=== PATIENT | male | born 1965 | race Caucasian/White ===

== ENCOUNTER 2022-02-27 02:11 | Emergency (ER) | payer MEDICARE ==
[2022-02-27 03:05] LABS: #Eosinphils 0.3 thou/uL (0.0-0.7); #Lymphocytes 1.2 thou/uL (1.20-3.40); #Monocytes 0.7 thou/uL (0.11-0.59); %Basophils 0.3 % (0.0-1.0); %Eosinophils 3.8 % (0.0-10.0); %Lymphocytes 12.8 % (21.0-51.0); %Monocytes 7.7 % (0.0-10.0); %Neutrophils 75.5 % (42.0-75.0); Hemoglobin 11.9 g/dL (14.0-18.0); Mean Corpuscular HGB CONC 34.3 g/dL (32.0-36.0); Mean Corpuscular Hemoglobin 30.4 pg (27.0-31.0); Mean Corpuscular Volume 88.6 fL (78.0-98.0); Mean Platelet Volume 7.9 fL (7.4-10.4); Platelet Count 271 thou/uL (130-400); RBC Distribution Width 11.9 % (11.5-14.5); Red Blood Cell (RBC) Count 3.91 mill/uL (4.70-6.10); White Blood Cell (WBC) Count 9.2 thou/uL (4.8-10.8)
[2022-02-27 03:22] LABS: ALT (SGPT) 17 U/L (8-55); AST (SGOT) 18 U/L (5-34); Albumin 3.6 g/dL (3.5-5.0); Alkaline Phosphatase 62 U/L (40-110); Anion Gap 13 mmol/L (10-20); BUN (Urea Nitrogen) 17 mg/dL (8.4-25.7); Bilirubin, Total 0.3 mg/dL (0.2-1.2); CK (CPK) 106 U/L (30-200); Calc. Creatinine Clearance 0 mL/min (70-130); Calcium 8.8 mg/dL (7.8-10.44); Carbon Dioxide 26 mmol/L (22-29); Chloride 104 mmol/L (98-107); Estimated GFR 77; Globulin 3.5 g/dL (2.4-3.5); Glucose 72 mg/dL (70-105); Lipase 16 U/L (8-78); Potassium 3.7 mmol/L (3.5-5.1); Protein, Total 7.1 g/dL (6.0-8.3); Sodium 139 mmol/L (136-145)
[2022-02-27] MEDS ORDERED: Ketorolac Tromethamine 30 MG/ML VIAL ONE (03:50)
[2022-02-27] MEDS ORDERED: Dexamethasone 10 MG/ML VIAL ONE (03:50)
[2022-02-27] MEDS ORDERED: Iopamidol-370 76% 500 ML 1 ML ONE (08:55)
== END 2022-02-27 05:10 | disposition home or self-care (01) ==
LOC: ERS 02:11
DX: U07.1 COVID-19 (principal); J32.9 Chronic sinusitis, unspecified; E10.9 Type 1 diabetes mellitus without complications; E78.5 Hyperlipidemia, unspecified; Z86.73 Personal history of transient ischemic attack (TIA), and cerebral infarction without residual deficits
CPT/HCPCS: 70450; 70491; 80053; 82550; 83690; 85025; 96374; 96375; J1100; J1885; Q9967

== ENCOUNTER 2022-03-09 00:29 | Inpatient (IN) | payer MEDICARE, OTHER ==
[2022-03-09 00:56] LABS: #Eosinphils 0.5 thou/uL (0.0-0.7); #Lymphocytes 2.2 thou/uL (1.20-3.40); #Neutrophils 9.3 thou/uL (1.40-6.50); %Basophils 0.2 % (0.0-1.0); %Eosinophils 3.7 % (0.0-10.0); %Lymphocytes 16.9 % (21.0-51.0); %Monocytes 7.8 % (0.0-10.0); %Neutrophils 71.4 % (42.0-75.0); Hemoglobin 12.8 g/dL (14.0-18.0); Mean Corpuscular HGB CONC 33.7 g/dL (32.0-36.0); Mean Corpuscular Hemoglobin 30.2 pg (27.0-31.0); Mean Corpuscular Volume 89.6 fL (78.0-98.0); Mean Platelet Volume 7.8 fL (7.4-10.4); Platelet Count 382 thou/uL (130-400); Red Blood Cell (RBC) Count 4.24 mill/uL (4.70-6.10)
[2022-03-09 01:11] LABS: ALT (SGPT) 30 U/L (8-55); AST (SGOT) 25 U/L (5-34); Albumin 3.9 g/dL (3.5-5.0); Alkaline Phosphatase 72 U/L (40-110); Anion Gap 14 mmol/L (10-20); BUN (Urea Nitrogen) 20 mg/dL (8.4-25.7); Bilirubin, Total 0.7 mg/dL (0.2-1.2); Calc. Creatinine Clearance 0 mL/min (70-130); Calcium 8.9 mg/dL (7.8-10.44); Carbon Dioxide 28 mmol/L (22-29); Chloride 100 mmol/L (98-107); Estimated GFR 69; Globulin 3.2 g/dL (2.4-3.5); Glucose 287 mg/dL (70-105); Lipase 27 U/L (8-78); Protein, Total 7.1 g/dL (6.0-8.3); Sodium 137 mmol/L (136-145)
[2022-03-09] MEDS ORDERED: Aspirin Chewable 81 MG TAB ONE (01:42)
[2022-03-09 01:55] LABS: CKMB 7.8 ng/mL (0-6.6)
[2022-03-09] MEDS ORDERED: Nitroglycerin 50 MG/250 ML BOT 0 ML ONE (03:09)
[2022-03-09] MEDS ORDERED: Enoxaparin Sodium 80 MG/0.8 ML SYRINGE ONE (03:55)
[2022-03-09 05:02] LABS: Troponin I 0.984 ng/mL (< 0.028)
[2022-03-09] MEDS ORDERED: Dextrose 50% Abboject 50 ML SYRINGE SLOW IVP PRN (07:56)
[2022-03-09] MEDS ORDERED: Dextrose 5% in Water 1,000 ML IV PRN (07:56)
[2022-03-09] MEDS ORDERED: HumaLOG 300 UNITS/3 ML VIAL SC PRN (07:56)
[2022-03-09] MEDS ORDERED: Morphine 4 MG/ML VIAL SLOW IVP PRN (08:33)
[2022-03-09] MEDS ORDERED: Insulin Glargine 30 UNITS/0.3 ML VIAL SC SCH (09:00)
[2022-03-09] MEDS ORDERED: VARDENAFIL HCL 20 MG PO SCH (09:00)
[2022-03-09] MEDS: Lisinopril 20 MG TAB PO SCH (09:42)
[2022-03-09] MEDS: Aspirin 81 mg Enteric Coated Tablet PO SCH (09:42)
[2022-03-09] MEDS: Gabapentin 400 MG CAP PO SCH (09:42)
[2022-03-09] MEDS: Atorvastatin Calcium 40 MG TAB PO SCH (09:42)
[2022-03-09] MEDS: Amlodipine 5 MG TAB PO SCH (09:42)
[2022-03-09] MEDS: FLUoxetine HCl 20 MG CAP PO SCH (09:43)
[2022-03-09] MEDS ORDERED: Iopamidol-370 76% 500 ML 1 ML ONE (13:50)
[2022-03-09] MEDS ORDERED: Communication Order-Pharmacy FS SCH (14:45)
[2022-03-09] MEDS ORDERED: Sodium Chloride 0.9% 1,000 ML IV SCH (14:45)
[2022-03-09 16:04] LABS: Troponin I 9.358 ng/mL (< 0.028)
[2022-03-09] MEDS: Metoprolol Tartrate 25 MG TAB PO SCH (20:28)
[2022-03-10 04:41] LABS: #Eosinphils 0.1 thou/uL (0.0-0.7); #Lymphocytes 1.7 thou/uL (1.20-3.40); #Monocytes 1.5 thou/uL (0.11-0.59); #Neutrophils 14.7 thou/uL (1.40-6.50); %Basophils 0.2 % (0.0-1.0); %Eosinophils 0.7 % (0.0-10.0); %Lymphocytes 9.3 % (21.0-51.0); %Monocytes 8.5 % (0.0-10.0); %Neutrophils 81.4 % (42.0-75.0); Hemoglobin 12.5 g/dL (14.0-18.0); Mean Corpuscular HGB CONC 32.4 g/dL (32.0-36.0); Mean Corpuscular Hemoglobin 29.3 pg (27.0-31.0); Mean Corpuscular Volume 90.3 fL (78.0-98.0); Platelet Count 365 thou/uL (130-400); Red Blood Cell (RBC) Count 4.26 mill/uL (4.70-6.10); White Blood Cell (WBC) Count 18.1 thou/uL (4.8-10.8)
[2022-03-10 05:05] LABS: Anion Gap 15 mmol/L (10-20); BUN (Urea Nitrogen) 16 mg/dL (8.4-25.7); Calc. Creatinine Clearance 82 mL/min (70-130); Calcium 9.2 mg/dL (7.8-10.44); Carbon Dioxide 25 mmol/L (22-29); Cardiac Risk 3.7 (Less than 4.5); Chloride 98 mmol/L (98-107); Cholesterol 157 mg/dl (< 200 Desired); Estimated GFR 77; Glucose 173 mg/dL (70-105); HDL Cholesterol 43 mg/dL (>60 Neg Risk); LDL Cholesterol, Calculated 93 mg/dL; Potassium 3.9 mmol/L (3.5-5.1); Sodium 134 mmol/L (136-145); Triglycerides 105 mg/dL (Less than 150)
[2022-03-10] MEDS ORDERED: Sodium Chloride 0.9% 1,000 ML IV SCH ×2 (06:00→10:00)
[2022-03-10 07:46] LABS: SARS-CoV-2 NAA Rapid Test DETECTED (NotDetected)
[2022-03-10] MEDS ORDERED: Heparin 10,000 UNITS/ 10 ML VIAL ONE (07:57)
[2022-03-10] MEDS ORDERED: Lidocaine 1% 50ML VIAL ONE (07:58)
[2022-03-10] MEDS: Amlodipine 5 MG TAB PO SCH (08:16)
[2022-03-10] MEDS: Gabapentin 400 MG CAP PO SCH (08:17)
[2022-03-10] MEDS: Aspirin 81 mg Enteric Coated Tablet PO SCH (08:17)
[2022-03-10] MEDS: Lisinopril 20 MG TAB PO SCH (08:17)
[2022-03-10] MEDS: FLUoxetine HCl 20 MG CAP PO SCH (08:17)
[2022-03-10] MEDS: Atorvastatin Calcium 40 MG TAB PO SCH (08:17)
[2022-03-10] MEDS: Metoprolol Tartrate 25 MG TAB PO SCH ×2 (08:18→21:37)
[2022-03-10] MEDS ORDERED: Insulin Glargine 30 UNITS/0.3 ML VIAL SC SCH (09:00)
[2022-03-10] MEDS ORDERED: Enoxaparin Sodium 40 MG/0.4 ML SYRINGE SC SCH (09:00)
[2022-03-10] MEDS ORDERED: Clopidogrel Bisulfate 75 MG TAB PO SCH (09:00)
[2022-03-10] MEDS ORDERED: Fentanyl 100 MCG/2 ML VIAL ONE (09:02)
[2022-03-10] MEDS ORDERED: Midazolam HCl 2 mg/2 ml Vial ONE (09:02)
[2022-03-10] MEDS ORDERED: Protamine Sulfate 50 MG/5 ML VIAL ONE (09:26)
[2022-03-10] MEDS ORDERED: Nitroglycerin 4.9 GM Bottle ONE (09:28)
[2022-03-10] MEDS ORDERED: Acetaminophen/Codeine 30-300mg Tablet PO PRN ×2 (09:56)
[2022-03-10] MEDS ORDERED: Sodium Chloride 0.9% 200 ML IV PRN (09:56)
[2022-03-10] MEDS: HumaLOG 300 UNITS/3 ML VIAL SC PRN (13:05)
[2022-03-10] MEDS ORDERED: Iopamidol 370 76% 100 ML VIAL ONE (15:03)
[2022-03-10] MEDS ORDERED: Iopamidol 370 76% 50 ML VIAL FS ONE (15:03)
[2022-03-10] MEDS: Carvedilol 6.25 MG TAB PO SCH (16:36)
[2022-03-10] MEDS: Nitroglycerin 0.4 MG TAB (25 Tab Bottle) SL PRN ×2 (21:39→21:43)
[2022-03-11 05:07] LABS: Hemoglobin A1c 8.5 % (4.0-6.0)
[2022-03-11] MEDS ORDERED: Communication Order-Pharmacy FS SCH (08:10)
[2022-03-11] MEDS: Gabapentin 400 MG CAP PO SCH (08:27)
[2022-03-11] MEDS: Ezetimibe 10 MG TAB PO SCH (08:27)
[2022-03-11] MEDS: Metoprolol Tartrate 25 MG TAB PO SCH ×2 (08:28→21:14)
[2022-03-11] MEDS: Atorvastatin Calcium 40 MG TAB PO SCH (08:28)
[2022-03-11] MEDS: Carvedilol 6.25 MG TAB PO SCH ×2 (08:28→16:22)
[2022-03-11] MEDS: Amlodipine 5 MG TAB PO SCH (08:28)
[2022-03-11] MEDS: Furosemide 20 MG TAB PO SCH (08:28)
[2022-03-11] MEDS: FLUoxetine HCl 20 MG CAP PO SCH (08:28)
[2022-03-11] MEDS: Aspirin 81 mg Enteric Coated Tablet PO SCH (08:30)
[2022-03-11] MEDS: HumaLOG 300 UNITS/3 ML VIAL SC PRN ×2 (12:14→17:19)
[2022-03-11] MEDS: Nitroglycerin 2% Ointment 1 INCH/1 GM Packet TOP SCH ×2 (13:11→21:21)
[2022-03-12 05:06] LABS: #Basophils 0.1 thou/uL (0.0-0.2); #Eosinphils 0.1 thou/uL (0.0-0.7); #Lymphocytes 1.8 thou/uL (1.20-3.40); #Neutrophils 7.4 thou/uL (1.40-6.50); %Basophils 0.6 % (0.0-1.0); %Eosinophils 1.3 % (0.0-10.0); %Lymphocytes 17.4 % (21.0-51.0); %Neutrophils 70.7 % (42.0-75.0); Hemoglobin 10.7 g/dL (14.0-18.0); Mean Corpuscular HGB CONC 32.8 g/dL (32.0-36.0); Mean Corpuscular Hemoglobin 29.5 pg (27.0-31.0); Mean Corpuscular Volume 89.9 fL (78.0-98.0); Mean Platelet Volume 8.5 fL (7.4-10.4); Platelet Count 295 thou/uL (130-400); RBC Distribution Width 12.8 % (11.5-14.5); Red Blood Cell (RBC) Count 3.63 mill/uL (4.70-6.10); White Blood Cell (WBC) Count 10.5 thou/uL (4.8-10.8)
[2022-03-12 05:40] LABS: ALT (SGPT) 23 U/L (8-55); AST (SGOT) 24 U/L (5-34); Albumin 3.2 g/dL (3.5-5.0); Alkaline Phosphatase 60 U/L (40-110); Anion Gap 17 mmol/L (10-20); BUN (Urea Nitrogen) 27 mg/dL (8.4-25.7); Bilirubin, Total 0.6 mg/dL (0.2-1.2); Calc. Creatinine Clearance 71 mL/min (70-130); Calcium 8.3 mg/dL (7.8-10.44); Carbon Dioxide 21 mmol/L (22-29); Chloride 102 mmol/L (98-107); Estimated GFR 64; Globulin 3.3 g/dL (2.4-3.5); Glucose 350 mg/dL (70-105); Potassium 4.4 mmol/L (3.5-5.1); Protein, Total 6.5 g/dL (6.0-8.3); Sodium 136 mmol/L (136-145)
[2022-03-12] MEDS: HumaLOG 300 UNITS/3 ML VIAL SC PRN (06:48)
[2022-03-12] MEDS: Nitroglycerin 2% Ointment 1 INCH/1 GM Packet TOP SCH ×3 (06:50→21:33)
[2022-03-12] MEDS: Atorvastatin Calcium 40 MG TAB PO SCH (09:02)
[2022-03-12] MEDS: FLUoxetine HCl 20 MG CAP PO SCH (09:03)
[2022-03-12] MEDS: Furosemide 20 MG TAB PO SCH (09:03)
[2022-03-12] MEDS: Carvedilol 6.25 MG TAB PO SCH ×2 (09:03→17:13)
[2022-03-12] MEDS: Metoprolol Tartrate 25 MG TAB PO SCH ×2 (09:04→21:33)
[2022-03-12] MEDS: Aspirin 81 mg Enteric Coated Tablet PO SCH (09:04)
[2022-03-12] MEDS: Ezetimibe 10 MG TAB PO SCH (09:04)
[2022-03-12] MEDS: Insulin Glargine 30 UNITS/0.3 ML VIAL SC SCH (09:05)
[2022-03-12] MEDS: Gabapentin 400 MG CAP PO SCH (09:05)
[2022-03-12] MEDS ORDERED: Dextrose 50% Abboject 50 ML SYRINGE SLOW IVP PRN (10:54)
[2022-03-12] MEDS ORDERED: Dextrose 5% in Water 1,000 ML IV PRN (10:54)
[2022-03-12] MEDS: Insulin Regular 300 UNITS/3 ML VIAL SC PRN (11:38)
[2022-03-13] MEDS: Insulin Regular 300 UNITS/3 ML VIAL SC PRN ×4 (00:59→17:08)
[2022-03-13] MEDS: Nitroglycerin 2% Ointment 1 INCH/1 GM Packet TOP SCH ×3 (06:03→20:59)
[2022-03-13] MEDS: Carvedilol 6.25 MG TAB PO SCH ×3 (09:48→17:05)
[2022-03-13] MEDS: Ezetimibe 10 MG TAB PO SCH (09:49)
[2022-03-13] MEDS: Furosemide 20 MG TAB PO SCH (09:49)
[2022-03-13] MEDS: Atorvastatin Calcium 40 MG TAB PO SCH (09:49)
[2022-03-13] MEDS: Gabapentin 400 MG CAP PO SCH (09:49)
[2022-03-13] MEDS: FLUoxetine HCl 20 MG CAP PO SCH (09:49)
[2022-03-13] MEDS: Aspirin 81 mg Enteric Coated Tablet PO SCH (09:49)
[2022-03-13] MEDS: Metoprolol Tartrate 25 MG TAB PO SCH ×2 (09:49→10:45)
[2022-03-13] MEDS: Insulin Glargine 30 UNITS/0.3 ML VIAL SC SCH (09:49)
[2022-03-14 04:53] LABS: #Basophils 0.1 thou/uL (0.0-0.2); #Eosinphils 0.2 thou/uL (0.0-0.7); #Lymphocytes 1.7 thou/uL (1.20-3.40); #Monocytes 0.7 thou/uL (0.11-0.59); #Neutrophils 5.3 thou/uL (1.40-6.50); %Basophils 1.1 % (0.0-1.0); %Eosinophils 2.1 % (0.0-10.0); %Lymphocytes 21.1 % (21.0-51.0); %Monocytes 8.4 % (0.0-10.0); %Neutrophils 67.3 % (42.0-75.0); Hemoglobin 11.1 g/dL (14.0-18.0); Mean Corpuscular HGB CONC 34.1 g/dL (32.0-36.0); Mean Corpuscular Hemoglobin 30.5 pg (27.0-31.0); Mean Corpuscular Volume 89.5 fL (78.0-98.0); Mean Platelet Volume 8.6 fL (7.4-10.4); Platelet Count 302 thou/uL (130-400); RBC Distribution Width 12.4 % (11.5-14.5); Red Blood Cell (RBC) Count 3.63 mill/uL (4.70-6.10); White Blood Cell (WBC) Count 7.9 thou/uL (4.8-10.8)
[2022-03-14] MEDS: Insulin Regular 300 UNITS/3 ML VIAL SC PRN (05:04)
[2022-03-14] MEDS: Nitroglycerin 2% Ointment 1 INCH/1 GM Packet TOP SCH (05:05)
[2022-03-14 05:19] LABS: ALT (SGPT) 23 U/L (8-55); AST (SGOT) 15 U/L (5-34); Albumin 3.2 g/dL (3.5-5.0); Alkaline Phosphatase 62 U/L (40-110); Anion Gap 14 mmol/L (10-20); BUN (Urea Nitrogen) 20 mg/dL (8.4-25.7); Bilirubin, Total 0.6 mg/dL (0.2-1.2); Calc. Creatinine Clearance 77 mL/min (70-130); Calcium 8.5 mg/dL (7.8-10.44); Carbon Dioxide 25 mmol/L (22-29); Chloride 101 mmol/L (98-107); Estimated GFR 71; Globulin 3.2 g/dL (2.4-3.5); Glucose 345 mg/dL (70-105); Potassium 4.5 mmol/L (3.5-5.1); Protein, Total 6.4 g/dL (6.0-8.3); Sodium 135 mmol/L (136-145)
[2022-03-14] MEDS ORDERED: Albumin 5% 500 ML ONE (07:00)
[2022-03-14] MEDS ORDERED: EPINEPHrine 1 MG/ML AMP ONE (07:00)
[2022-03-14] MEDS ORDERED: VANCOMYCIN 1.25 GM/250 ML BAG IVPB SCH (07:00)
[2022-03-14] MEDS ORDERED: Dexamethasone 4 mg/ml Vial ONE (07:00)
[2022-03-14] MEDS ORDERED: Clindamycin/D5W 900 MG in Premix Bag 1 BAG IVPB SCH (07:00)
[2022-03-14] MEDS ORDERED: Bupivacaine PF 0.5% 30 ML VIAL ONE (07:00)
[2022-03-14] MEDS ORDERED: Dexmedetomidine 200 MCG/2 ML VIAL ONE (07:34)
[2022-03-14] MEDS ORDERED: fentaNYL Citrate/PF 100 MCG/2 ML SYRINGE ONE (07:34)
[2022-03-14] MEDS ORDERED: Midazolam HCl 5 mg/5 ml Vial ONE (07:34)
[2022-03-14] MEDS ORDERED: Ondansetron ODT 4 MG TAB ONE (07:54)
[2022-03-14] MEDS ORDERED: Vancomycin HCl 500 MG VIAL ONE (07:55)
[2022-03-14] MEDS ORDERED: Clindamycin/D5W 900 mg/50 ml Premix Bag ONE (07:55)
[2022-03-14] MEDS ORDERED: Vancomycin 1 GM/200 ML BAG ONE (07:56)
[2022-03-14] MEDS ORDERED: Protamine Sulfate 250 MG/25 ML VIAL ONE (08:07)
[2022-03-14] MEDS ORDERED: Norepinephrine 4 MG/4 ML VIAL ONE (08:07)
[2022-03-14] MEDS ORDERED: Vecuronium 10 MG VIAL ONE (08:07)
[2022-03-14] MEDS ORDERED: Lidocaine 1% MPF 2 ML VIAL ONE (08:07)
[2022-03-14] MEDS ORDERED: Heparin 5,000 UNITS/ML VIAL ONE (08:07)
[2022-03-14] MEDS ORDERED: Aminocaproic Acid 5 GM/20 ML VIAL ONE (08:07)
[2022-03-14] MEDS ORDERED: Lidocaine 2% PF 100 mg/5 ml Syringe ONE (08:07)
[2022-03-14] MEDS ORDERED: Mannitol 12.5 GM/50 ML ONE (08:07)
[2022-03-14] MEDS ORDERED: Thrombin 5000 UNITS/5 ML VIAL ONE (08:07)
[2022-03-14] MEDS ORDERED: Papaverine 60 MG/2 ML VIAL ONE (08:07)
[2022-03-14] MEDS ORDERED: Sodium Bicarb 50 MEQ/50 ML Abboject 8.4% SYRINGE ONE (08:07)
[2022-03-14] MEDS ORDERED: Esmolol 100 MG/10 ML VIAL ONE (08:07)
[2022-03-14] MEDS ORDERED: Cardioplegic Soln 1,000 ML BAG ONE (08:07)
[2022-03-14] MEDS ORDERED: Magnesium Sulfate 1 GM/2 ML VIAL ONE (08:07)
[2022-03-14] MEDS ORDERED: Heparin 30,000 units/30 ml VIAL ONE (08:07)
[2022-03-14] MEDS ORDERED: Calcium Chloride 1 GM/10 ML Abboject SYRINGE ONE (08:07)
[2022-03-14] MEDS ORDERED: PROPOFOL 200 MG/20 ML VIAL ONE (08:07)
[2022-03-14] MEDS ORDERED: Insulin Regular 300 UNITS/3 ML VIAL ONE (08:47)
[2022-03-14] MEDS ORDERED: NOREPINEPHRINE 8 MG/250 ML-D5W 250 ML IVPB PRN (11:11)
[2022-03-14] MEDS ORDERED: Guaifenesin DM 100-10/5 ML UDCUP PO PRN (11:11)
[2022-03-14] MEDS ORDERED: Post-Op Insulin Drip Protocol IVPB PRN (11:11)
[2022-03-14] MEDS ORDERED: Bisacodyl 5 MG TAB PO PRN (11:11)
[2022-03-14] MEDS ORDERED: Hetastarch 6% 500 ML 500 ML IVPB PRN (11:11)
[2022-03-14] MEDS ORDERED: Mag-Al 1200 mg/1200 mg/30 ML UDCUP PO PRN (11:11)
[2022-03-14] MEDS ORDERED: Bisacodyl 10 MG SUPP PR PRN (11:11)
[2022-03-14] MEDS ORDERED: Ondansetron PF 4 MG/2 ML Vial IVP PRN (11:11)
[2022-03-14] MEDS ORDERED: Fentanyl 100 MCG/2 ML VIAL SLOW IVP PRN (11:11)
[2022-03-14] MEDS ORDERED: Promethazine HCl 25 MG/ML VIAL IM PRN (11:11)
[2022-03-14] MEDS ORDERED: Potassium Chloride 20 MEQ/100 ML PREMIX BAG IVPB PRN (11:11)
[2022-03-14] MEDS ORDERED: Nitroglycerin 50 MG/250 ML BOT 250 ML IVPB PRN (11:11)
[2022-03-14] MEDS ORDERED: Morphine 2 MG/ML VIAL SLOW IVP PRN (11:11)
[2022-03-14] MEDS ORDERED: Acetaminophen 325 MG TAB PO PRN (11:11)
[2022-03-14] MEDS ORDERED: D5 1/2 NS w/20 mEq KCL 1,000 ML IV SCH (11:15)
[2022-03-14 12:05] LABS: INR-International Normal Ratio 1.2; Prothrombin Time 15.7 sec (12.0-14.7)
[2022-03-14 12:07] LABS: PTT 111.9 sec (22.9-36.1)
[2022-03-14 12:11] LABS: Anion Gap 15 mmol/L (10-20); BUN (Urea Nitrogen) 15 mg/dL (8.4-25.7); Calc. Creatinine Clearance 105 mL/min (70-130); Calcium 7.7 mg/dL (7.8-10.44); Carbon Dioxide 22 mmol/L (22-29); Chloride 108 mmol/L (98-107); Estimated GFR 101; Glucose 121 mg/dL (70-105); Potassium 3.8 mmol/L (3.5-5.1); Sodium 141 mmol/L (136-145)
[2022-03-14] MEDS: Fentanyl 100 MCG/2 ML VIAL SLOW IVP PRN ×3 (12:12→15:42)
[2022-03-14] MEDS: Ketorolac Tromethamine 30 MG/ML VIAL IVP SCH ×3 (12:12→23:58)
[2022-03-14] MEDS ORDERED: Insulin Regular 300 UNITS/3 ML VIAL SC PRN (12:15)
[2022-03-14] MEDS ORDERED: Dextrose 5% in Water 1,000 ML IV PRN (12:15)
[2022-03-14] MEDS ORDERED: HUMULIN R 100 UNITS in Sodium Chloride 0.9% 100 ML IVPB SCH (12:15)
[2022-03-14] MEDS ORDERED: Magnesium 2 GM/50 ML(in water) 2 GM in Premix Bag 1 BAG IVPB SCH (12:15)
[2022-03-14] MEDS ORDERED: Dextrose 50% Abboject 50 ML SYRINGE SLOW IVP PRN (12:15)
[2022-03-14 12:19] LABS: #Eosinphils 0.2 thou/uL (0.0-0.7); #Monocytes 0.7 thou/uL (0.11-0.59); #Neutrophils 17.2 thou/uL (1.40-6.50); %Basophils 0.1 % (0.0-1.0); %Eosinophils 1.2 % (0.0-10.0); %Monocytes 3.5 % (0.0-10.0); %Neutrophils 90.3 % (42.0-75.0); Hemoglobin 9.2 g/dL (14.0-18.0); Mean Corpuscular HGB CONC 33.6 g/dL (32.0-36.0); Mean Corpuscular Hemoglobin 30.1 pg (27.0-31.0); Mean Corpuscular Volume 89.8 fL (78.0-98.0); Mean Platelet Volume 8.5 fL (7.4-10.4); Platelet Count 234 thou/uL (130-400); RBC Distribution Width 12.3 % (11.5-14.5); Red Blood Cell (RBC) Count 3.05 mill/uL (4.70-6.10)
[2022-03-14] MEDS: Gabapentin 400 MG CAP PO SCH (12:41)
[2022-03-14] MEDS: Furosemide 20 MG TAB PO SCH (12:41)
[2022-03-14] MEDS: Insulin Glargine 30 UNITS/0.3 ML VIAL SC SCH (12:41)
[2022-03-14] MEDS: Carvedilol 6.25 MG TAB PO SCH (12:42)
[2022-03-14] MEDS: Aspirin 81 mg Enteric Coated Tablet PO SCH (12:42)
[2022-03-14] MEDS: Ezetimibe 10 MG TAB PO SCH (12:42)
[2022-03-14] MEDS: FLUoxetine HCl 20 MG CAP PO SCH (12:42)
[2022-03-14] MEDS: Atorvastatin Calcium 40 MG TAB PO SCH (12:42)
[2022-03-14] MEDS: Clindamycin/D5W 900 MG in Premix Bag 1 BAG IVPB SCH ×2 (13:35→19:56)
[2022-03-14 17:13] LABS: Hemoglobin 9.5 g/dL (14.0-18.0)
[2022-03-14 17:27] LABS: Potassium 4.8 mmol/L (3.5-5.1)
[2022-03-14] MEDS: traMADol HCl 50 MG TAB PO PRN (17:45)
[2022-03-14] MEDS: Famotidine/PF 20 mg/2ml Vial SLOW IVP SCH (20:18)
[2022-03-14] MEDS: Vancomycin 1 GM in Premix Bag 1 BAG IVPB SCH (20:18)
[2022-03-14] MEDS ORDERED: Atorvastatin Calcium 40 MG TAB PO SCH (21:00)
[2022-03-15] MEDS: Clindamycin/D5W 900 MG in Premix Bag 1 BAG IVPB SCH ×2 (01:07→07:54)
[2022-03-15 06:09] LABS: #Lymphocytes 0.7 thou/uL (1.20-3.40); #Neutrophils 17.5 thou/uL (1.40-6.50); %Basophils 0.1 % (0.0-1.0); %Lymphocytes 3.5 % (21.0-51.0); %Monocytes 5.4 % (0.0-10.0); Hemoglobin 9.4 g/dL (14.0-18.0); Mean Corpuscular HGB CONC 33.2 g/dL (32.0-36.0); Mean Corpuscular Hemoglobin 29.8 pg (27.0-31.0); Mean Corpuscular Volume 89.8 fL (78.0-98.0); Mean Platelet Volume 8.9 fL (7.4-10.4); Platelet Count 280 thou/uL (130-400); RBC Distribution Width 12.6 % (11.5-14.5); Red Blood Cell (RBC) Count 3.15 mill/uL (4.70-6.10); White Blood Cell (WBC) Count 19.2 thou/uL (4.8-10.8)
[2022-03-15] MEDS ORDERED: Dextrose 50% Abboject 50 ML SYRINGE SLOW IVP PRN (06:25)
[2022-03-15] MEDS ORDERED: Dextrose 5% in Water 1,000 ML IV PRN (06:25)
[2022-03-15 06:37] LABS: ALT (SGPT) 17 U/L (8-55); AST (SGOT) 20 U/L (5-34); Albumin 3.3 g/dL (3.5-5.0); Alkaline Phosphatase 49 U/L (40-110); Anion Gap 16 mmol/L (10-20); BUN (Urea Nitrogen) 22 mg/dL (8.4-25.7); Bilirubin, Total 0.5 mg/dL (0.2-1.2); Calc. Creatinine Clearance 61 mL/min (70-130); Calcium 8.1 mg/dL (7.8-10.44); Carbon Dioxide 20 mmol/L (22-29); Chloride 105 mmol/L (98-107); Estimated GFR 53; Globulin 2.6 g/dL (2.4-3.5); Glucose 100 mg/dL (70-105); Potassium 4.2 mmol/L (3.5-5.1); Protein, Total 5.9 g/dL (6.0-8.3); Sodium 137 mmol/L (136-145)
[2022-03-15] MEDS: Ketorolac Tromethamine 30 MG/ML VIAL IVP SCH ×3 (06:58→17:46)
[2022-03-15] MEDS: Magnesium 2 GM/50 ML(in water) 2 GM in Premix Bag 1 BAG IVPB SCH (07:54)
[2022-03-15] MEDS: Gabapentin 400 MG CAP PO SCH (07:55)
[2022-03-15] MEDS: Vancomycin 1 GM in Premix Bag 1 BAG IVPB SCH (07:55)
[2022-03-15] MEDS: FLUoxetine HCl 20 MG CAP PO SCH (07:56)
[2022-03-15] MEDS: Famotidine/PF 20 mg/2ml Vial SLOW IVP SCH (07:56)
[2022-03-15] MEDS: HumaLOG 300 UNITS/3 ML VIAL SC PRN ×4 (07:57→22:05)
[2022-03-15] MEDS ORDERED: Aspirin 325 MG TAB PO SCH (09:00)
[2022-03-15] MEDS ORDERED: Insulin Glargine 30 UNITS/0.3 ML VIAL SC PRN (12:12)
[2022-03-15] MEDS ORDERED: Insulin Glargine 30 UNITS/0.3 ML VIAL SC SCH (17:15)
[2022-03-15] MEDS ORDERED: Nitroglycerin 0.4 MG TAB (25 Tab Bottle) SL PRN (18:28)
[2022-03-15] MEDS ORDERED: Milk Of Magnesia 30 ML UDCUP PO PRN (18:28)
[2022-03-15] MEDS ORDERED: Bisacodyl 10 MG SUPP PR PRN (18:28)
[2022-03-15] MEDS ORDERED: Mag-Al 1200 mg/1200 mg/30 ML UDCUP PO PRN (18:28)
[2022-03-15] MEDS ORDERED: Mineral Oil ENEMA PR PRN (18:28)
[2022-03-15] MEDS ORDERED: Bisacodyl 5 MG TAB PO PRN (18:28)
[2022-03-15] MEDS ORDERED: Guaifenesin DM 100-10/5 ML UDCUP PO PRN (18:28)
[2022-03-15] MEDS ORDERED: diphenhydrAMINE 25 MG CAP PO PRN (18:28)
[2022-03-15] MEDS: Carvedilol 3.125 MG TAB PO SCH (20:34)
[2022-03-15] MEDS: Atorvastatin Calcium 40 MG TAB PO SCH (20:35)
[2022-03-16] MEDS: Ketorolac Tromethamine 30 MG/ML VIAL IVP SCH ×5 (00:05→23:47)
[2022-03-16] MEDS ORDERED: Insulin Glargine 30 UNITS/0.3 ML VIAL SC SCH (09:00)
[2022-03-16] MEDS: Clopidogrel Bisulfate 75 MG TAB PO SCH (09:25)
[2022-03-16] MEDS: Magnesium 2 GM/50 ML(in water) 2 GM in Premix Bag 1 BAG IVPB SCH (09:25)
[2022-03-16] MEDS: Carvedilol 3.125 MG TAB PO SCH ×2 (09:25→20:50)
[2022-03-16] MEDS: Aspirin 81 mg Enteric Coated Tablet PO SCH (09:25)
[2022-03-16] MEDS: Gabapentin 400 MG CAP PO SCH (09:25)
[2022-03-16] MEDS: FLUoxetine HCl 20 MG CAP PO SCH (09:26)
[2022-03-16] MEDS: Insulin Glargine 30 UNITS/0.3 ML VIAL SC SCH ×2 (09:28→20:50)
[2022-03-16] MEDS: HumaLOG 300 UNITS/3 ML VIAL SC PRN ×2 (10:56→15:54)
[2022-03-16] MEDS: Atorvastatin Calcium 40 MG TAB PO SCH (20:50)
[2022-03-17] MEDS: HumaLOG 300 UNITS/3 ML VIAL SC PRN ×3 (02:12→17:53)
[2022-03-17 05:06] LABS: Anion Gap 13 mmol/L (10-20); BUN (Urea Nitrogen) 41 mg/dL (8.4-25.7); Calc. Creatinine Clearance 68 mL/min (70-130); Calcium 7.6 mg/dL (7.8-10.44); Carbon Dioxide 22 mmol/L (22-29); Chloride 101 mmol/L (98-107); Estimated GFR 54; Glucose 263 mg/dL (70-105); Potassium 4.6 mmol/L (3.5-5.1); Sodium 131 mmol/L (136-145)
[2022-03-17] MEDS: Ketorolac Tromethamine 30 MG/ML VIAL IVP SCH ×2 (05:56→12:08)
[2022-03-17] MEDS: Gabapentin 400 MG CAP PO SCH (08:35)
[2022-03-17] MEDS: FLUoxetine HCl 20 MG CAP PO SCH (08:35)
[2022-03-17] MEDS: Insulin Glargine 30 UNITS/0.3 ML VIAL SC SCH ×2 (08:36→20:30)
[2022-03-17] MEDS: Clopidogrel Bisulfate 75 MG TAB PO SCH (08:36)
[2022-03-17] MEDS: Carvedilol 3.125 MG TAB PO SCH ×2 (08:36→20:30)
[2022-03-17] MEDS: Aspirin 81 mg Enteric Coated Tablet PO SCH (08:36)
[2022-03-17] MEDS: traMADol HCl 50 MG TAB PO PRN (14:20)
[2022-03-17] MEDS ORDERED: Morphine 2 MG/ML VIAL SLOW IVP SCH ×2 (16:15→17:45)
[2022-03-17] MEDS ORDERED: HumaLOG 300 UNITS/3 ML VIAL SC SCH (17:00)
[2022-03-17] MEDS: Morphine 2 MG/ML VIAL SLOW IVP PRN (20:29)
[2022-03-17] MEDS: Atorvastatin Calcium 40 MG TAB PO SCH (20:30)
[2022-03-17] MEDS: Senokot S 8.6-50 MG TAB PO SCH (20:30)
[2022-03-18] MEDS: Morphine 2 MG/ML VIAL SLOW IVP PRN ×4 (06:17→18:23)
[2022-03-18] MEDS: Carvedilol 3.125 MG TAB PO SCH ×2 (08:47→20:18)
[2022-03-18] MEDS: Gabapentin 400 MG CAP PO SCH (08:47)
[2022-03-18] MEDS: FLUoxetine HCl 20 MG CAP PO SCH (08:48)
[2022-03-18] MEDS: Aspirin 81 mg Enteric Coated Tablet PO SCH (08:48)
[2022-03-18] MEDS: Clopidogrel Bisulfate 75 MG TAB PO SCH (08:48)
[2022-03-18] MEDS: Insulin Glargine 30 UNITS/0.3 ML VIAL SC SCH ×2 (08:49→20:19)
[2022-03-18] MEDS: HumaLOG 300 UNITS/3 ML VIAL SC PRN (10:23)
[2022-03-18 13:38] LABS: #Eosinphils 0.4 thou/uL (0.0-0.7); #Lymphocytes 1.3 thou/uL (1.20-3.40); #Monocytes 0.6 thou/uL (0.11-0.59); #Neutrophils 6.9 thou/uL (1.40-6.50); %Basophils 0.2 % (0.0-1.0); %Lymphocytes 14.3 % (21.0-51.0); %Monocytes 6.3 % (0.0-10.0); %Neutrophils 75.2 % (42.0-75.0); Hemoglobin 9.1 g/dL (14.0-18.0); Mean Corpuscular HGB CONC 33.3 g/dL (32.0-36.0); Mean Corpuscular Hemoglobin 29.9 pg (27.0-31.0); Mean Corpuscular Volume 89.8 fL (78.0-98.0); Platelet Count 340 thou/uL (130-400); RBC Distribution Width 12.7 % (11.5-14.5); Red Blood Cell (RBC) Count 3.05 mill/uL (4.70-6.10); White Blood Cell (WBC) Count 9.2 thou/uL (4.8-10.8)
[2022-03-18 14:03] LABS: Anion Gap 14 mmol/L (10-20); BUN (Urea Nitrogen) 29 mg/dL (8.4-25.7); Calc. Creatinine Clearance 77 mL/min (70-130); Calcium 8.1 mg/dL (7.8-10.44); Carbon Dioxide 24 mmol/L (22-29); Chloride 102 mmol/L (98-107); Estimated GFR 63; Glucose 162 mg/dL (70-105); Magnesium 2.7 mg/dL (1.6-2.6); Phosphorus 3.3 mg/dL (2.3-4.7); Potassium 4.5 mmol/L (3.5-5.1); Sodium 135 mmol/L (136-145)
[2022-03-18] MEDS: traMADol HCl 50 MG TAB PO PRN ×2 (17:31→20:25)
[2022-03-18] MEDS: Atorvastatin Calcium 40 MG TAB PO SCH (20:18)
[2022-03-18] MEDS: Senokot S 8.6-50 MG TAB PO SCH (20:18)
[2022-03-18] MEDS ORDERED: Gabapentin 100 MG CAP PO SCH (20:30)
[2022-03-19] MEDS: Morphine 2 MG/ML VIAL SLOW IVP PRN (02:53)
[2022-03-19] MEDS ORDERED: Morphine 4 MG/ML VIAL SLOW IVP SCH ×2 (04:00→11:15)
[2022-03-19 04:36] LABS: #Basophils 0.1 thou/uL (0.0-0.2); #Eosinphils 0.5 thou/uL (0.0-0.7); #Lymphocytes 1.1 thou/uL (1.20-3.40); #Monocytes 0.7 thou/uL (0.11-0.59); #Neutrophils 6.7 thou/uL (1.40-6.50); %Basophils 0.6 % (0.0-1.0); %Eosinophils 5.1 % (0.0-10.0); %Lymphocytes 12.3 % (21.0-51.0); %Monocytes 7.9 % (0.0-10.0); %Neutrophils 74.1 % (42.0-75.0); Hemoglobin 9.3 g/dL (14.0-18.0); Mean Corpuscular HGB CONC 32.8 g/dL (32.0-36.0); Mean Corpuscular Hemoglobin 29.4 pg (27.0-31.0); Mean Corpuscular Volume 89.6 fL (78.0-98.0); Mean Platelet Volume 7.8 fL (7.4-10.4); Platelet Count 375 thou/uL (130-400); RBC Distribution Width 12.6 % (11.5-14.5); Red Blood Cell (RBC) Count 3.15 mill/uL (4.70-6.10); White Blood Cell (WBC) Count 9.1 thou/uL (4.8-10.8)
[2022-03-19 04:57] LABS: Anion Gap 12 mmol/L (10-20); BUN (Urea Nitrogen) 25 mg/dL (8.4-25.7); Calc. Creatinine Clearance 82 mL/min (70-130); Carbon Dioxide 23 mmol/L (22-29); Chloride 104 mmol/L (98-107); Estimated GFR 68; Glucose 252 mg/dL (70-105); Sodium 134 mmol/L (136-145)
[2022-03-19] MEDS: HumaLOG 300 UNITS/3 ML VIAL SC PRN ×2 (06:05→17:46)
[2022-03-19] MEDS: traMADol HCl 50 MG TAB PO PRN ×2 (07:39→14:15)
[2022-03-19] MEDS: Insulin Glargine 30 UNITS/0.3 ML VIAL SC SCH ×2 (09:55→21:53)
[2022-03-19] MEDS: Gabapentin 400 MG CAP PO SCH (09:55)
[2022-03-19] MEDS: FLUoxetine HCl 20 MG CAP PO SCH (09:56)
[2022-03-19] MEDS: Carvedilol 3.125 MG TAB PO SCH ×2 (09:56→21:54)
[2022-03-19] MEDS: Aspirin 81 mg Enteric Coated Tablet PO SCH (09:56)
[2022-03-19] MEDS: Morphine 4 MG/ML VIAL SLOW IVP PRN (17:46)
[2022-03-19] MEDS: Senokot S 8.6-50 MG TAB PO SCH (21:53)
[2022-03-19] MEDS: Atorvastatin Calcium 40 MG TAB PO SCH (21:54)
[2022-03-20] MEDS: Morphine 4 MG/ML VIAL SLOW IVP PRN ×3 (01:01→20:18)
[2022-03-20] MEDS: Baclofen 10 MG TAB PO PRN (05:25)
[2022-03-20] MEDS: HumaLOG 300 UNITS/3 ML VIAL SC PRN ×2 (06:04→21:22)
[2022-03-20] MEDS: Gabapentin 400 MG CAP PO SCH (09:06)
[2022-03-20] MEDS: Aspirin 81 mg Enteric Coated Tablet PO SCH (09:06)
[2022-03-20] MEDS: Carvedilol 3.125 MG TAB PO SCH (09:06)
[2022-03-20] MEDS: FLUoxetine HCl 20 MG CAP PO SCH (09:06)
[2022-03-20] MEDS: traMADol HCl 50 MG TAB PO PRN ×2 (09:07→16:17)
[2022-03-20] MEDS: Insulin Glargine 30 UNITS/0.3 ML VIAL SC SCH ×2 (09:07→20:17)
[2022-03-20] MEDS ORDERED: Carvedilol 3.125 MG TAB PO SCH (09:08)
[2022-03-20] MEDS ORDERED: Carvedilol 6.25 MG TAB PO SCH (09:15)
[2022-03-20] MEDS: Atorvastatin Calcium 40 MG TAB PO SCH (20:16)
[2022-03-20] MEDS: Senokot S 8.6-50 MG TAB PO SCH (20:16)
[2022-03-20] MEDS: Zolpidem Tartrate 5 MG TAB PO PRN (20:17)
[2022-03-20] MEDS: Carvedilol 6.25 MG TAB PO SCH (20:17)
[2022-03-21] MEDS: traMADol HCl 50 MG TAB PO PRN ×2 (03:11→20:08)
[2022-03-21] MEDS: Morphine 4 MG/ML VIAL SLOW IVP PRN ×2 (04:50→16:22)
[2022-03-21] MEDS: Baclofen 10 MG TAB PO PRN (04:52)
[2022-03-21 04:57] LABS: #Eosinphils 0.8 thou/uL (0.0-0.7); #Lymphocytes 1.3 thou/uL (1.20-3.40); #Neutrophils 6.1 thou/uL (1.40-6.50); %Basophils 0.3 % (0.0-1.0); %Eosinophils 8.3 % (0.0-10.0); %Lymphocytes 14.4 % (21.0-51.0); %Monocytes 10.6 % (0.0-10.0); %Neutrophils 66.4 % (42.0-75.0); Hemoglobin 9.2 g/dL (14.0-18.0); Mean Corpuscular HGB CONC 33.5 g/dL (32.0-36.0); Mean Corpuscular Volume 89.5 fL (78.0-98.0); Mean Platelet Volume 7.5 fL (7.4-10.4); Platelet Count 450 thou/uL (130-400); RBC Distribution Width 12.6 % (11.5-14.5); Red Blood Cell (RBC) Count 3.07 mill/uL (4.70-6.10); White Blood Cell (WBC) Count 9.2 thou/uL (4.8-10.8)
[2022-03-21 05:23] LABS: Anion Gap 15 mmol/L (10-20); BUN (Urea Nitrogen) 17 mg/dL (8.4-25.7); Calc. Creatinine Clearance 70 mL/min (70-130); Calcium 8.6 mg/dL (7.8-10.44); Carbon Dioxide 23 mmol/L (22-29); Chloride 103 mmol/L (98-107); Estimated GFR 64; Glucose 92 mg/dL (70-105); Potassium 4.3 mmol/L (3.5-5.1); Sodium 137 mmol/L (136-145)
[2022-03-21] MEDS ORDERED: oxyCODONE/Acetaminophen 5 mg/325 mg Tablet PO PRN (08:06)
[2022-03-21] MEDS: Gabapentin 400 MG CAP PO SCH (08:53)
[2022-03-21] MEDS: Clopidogrel Bisulfate 75 MG TAB PO SCH (08:53)
[2022-03-21] MEDS: FLUoxetine HCl 20 MG CAP PO SCH (08:53)
[2022-03-21] MEDS: Insulin Glargine 30 UNITS/0.3 ML VIAL SC SCH ×2 (08:54→20:09)
[2022-03-21] MEDS: Aspirin 81 mg Enteric Coated Tablet PO SCH (08:54)
[2022-03-21] MEDS: Carvedilol 6.25 MG TAB PO SCH ×2 (08:58→20:09)
[2022-03-21] MEDS: Senokot S 8.6-50 MG TAB PO SCH (20:08)
[2022-03-21] MEDS: Atorvastatin Calcium 40 MG TAB PO SCH (20:09)
[2022-03-21] MEDS: Zolpidem Tartrate 5 MG TAB PO PRN (20:09)
[2022-03-22] MEDS: Morphine 4 MG/ML VIAL SLOW IVP PRN (03:41)
[2022-03-22] MEDS ORDERED: Acetaminophen 500 MG TAB PO PRN (08:58)
[2022-03-22] MEDS: Carvedilol 6.25 MG TAB PO SCH ×2 (08:58→20:35)
[2022-03-22] MEDS: Lisinopril 5 MG TAB PO SCH (08:58)
[2022-03-22] MEDS: Aspirin 81 mg Enteric Coated Tablet PO SCH (08:59)
[2022-03-22] MEDS: Clopidogrel Bisulfate 75 MG TAB PO SCH (08:59)
[2022-03-22] MEDS: FLUoxetine HCl 20 MG CAP PO SCH (08:59)
[2022-03-22] MEDS: Gabapentin 400 MG CAP PO SCH (08:59)
[2022-03-22] MEDS: Insulin Glargine 30 UNITS/0.3 ML VIAL SC SCH ×2 (09:00→20:36)
[2022-03-22 09:28] LABS: #Basophils 0.1 thou/uL (0.0-0.2); #Eosinphils 0.5 thou/uL (0.0-0.7); #Lymphocytes 0.9 thou/uL (1.20-3.40); #Monocytes 0.9 thou/uL (0.11-0.59); #Neutrophils 10.2 thou/uL (1.40-6.50); %Basophils 0.5 % (0.0-1.0); %Eosinophils 3.9 % (0.0-10.0); %Lymphocytes 7.2 % (21.0-51.0); %Monocytes 7.2 % (0.0-10.0); %Neutrophils 81.2 % (42.0-75.0); Hemoglobin 10.2 g/dL (14.0-18.0); Mean Corpuscular HGB CONC 33.2 g/dL (32.0-36.0); Mean Corpuscular Hemoglobin 29.6 pg (27.0-31.0); Mean Corpuscular Volume 89.3 fL (78.0-98.0); Mean Platelet Volume 7.3 fL (7.4-10.4); Platelet Count 544 thou/uL (130-400); RBC Distribution Width 12.8 % (11.5-14.5); Red Blood Cell (RBC) Count 3.44 mill/uL (4.70-6.10); White Blood Cell (WBC) Count 12.5 thou/uL (4.8-10.8)
[2022-03-22 09:48] LABS: ALT (SGPT) 27 U/L (8-55); AST (SGOT) 30 U/L (5-34); Albumin 3.1 g/dL (3.5-5.0); Alkaline Phosphatase 79 U/L (40-110); Anion Gap 17 mmol/L (10-20); BUN (Urea Nitrogen) 20 mg/dL (8.4-25.7); Bilirubin, Total 0.6 mg/dL (0.2-1.2); Calc. Creatinine Clearance 61 mL/min (70-130); Calcium 8.9 mg/dL (7.8-10.44); Carbon Dioxide 21 mmol/L (22-29); Chloride 102 mmol/L (98-107); Estimated GFR 55; Globulin 3.6 g/dL (2.4-3.5); Glucose 246 mg/dL (70-105); Potassium 5.1 mmol/L (3.5-5.1); Protein, Total 6.7 g/dL (6.0-8.3); Sodium 135 mmol/L (136-145)
[2022-03-22] MEDS: HumaLOG 300 UNITS/3 ML VIAL SC PRN (11:31)
[2022-03-22] MEDS: Senokot S 8.6-50 MG TAB PO SCH (20:35)
[2022-03-22] MEDS: Atorvastatin Calcium 40 MG TAB PO SCH (20:36)
[2022-03-22] MEDS: HYDROcodone/Acetaminophen 5/325 mg Tablet PO PRN (20:37)
[2022-03-23] MEDS: HYDROcodone/Acetaminophen 5/325 mg Tablet PO PRN ×5 (01:19→23:58)
[2022-03-23] MEDS: HumaLOG 300 UNITS/3 ML VIAL SC PRN ×3 (05:01→17:53)
[2022-03-23] MEDS: Clopidogrel Bisulfate 75 MG TAB PO SCH (08:42)
[2022-03-23] MEDS: Carvedilol 6.25 MG TAB PO SCH ×2 (08:43→17:49)
[2022-03-23] MEDS: FLUoxetine HCl 20 MG CAP PO SCH (08:43)
[2022-03-23] MEDS: Lisinopril 5 MG TAB PO SCH (08:45)
[2022-03-23] MEDS: Insulin Glargine 30 UNITS/0.3 ML VIAL SC SCH ×2 (08:46→20:40)
[2022-03-23] MEDS: Aspirin 81 mg Enteric Coated Tablet PO SCH (08:46)
[2022-03-23 09:32] LABS: #Basophils 0.1 thou/uL (0.0-0.2); #Eosinphils 0.4 thou/uL (0.0-0.7); #Monocytes 0.8 thou/uL (0.11-0.59); #Neutrophils 6.4 thou/uL (1.40-6.50); %Basophils 0.8 % (0.0-1.0); %Eosinophils 4.7 % (0.0-10.0); %Monocytes 9.1 % (0.0-10.0); %Neutrophils 73.4 % (42.0-75.0); Hemoglobin 9.5 g/dL (14.0-18.0); Mean Corpuscular HGB CONC 32.6 g/dL (32.0-36.0); Mean Corpuscular Hemoglobin 28.9 pg (27.0-31.0); Mean Corpuscular Volume 88.7 fL (78.0-98.0); Mean Platelet Volume 7.2 fL (7.4-10.4); Platelet Count 598 thou/uL (130-400); RBC Distribution Width 12.9 % (11.5-14.5); White Blood Cell (WBC) Count 8.6 thou/uL (4.8-10.8)
[2022-03-23 09:52] LABS: ALT (SGPT) 31 U/L (8-55); AST (SGOT) 29 U/L (5-34); Albumin 2.9 g/dL (3.5-5.0); Alkaline Phosphatase 77 U/L (40-110); Anion Gap 16 mmol/L (10-20); BUN (Urea Nitrogen) 19 mg/dL (8.4-25.7); Bilirubin, Total 0.5 mg/dL (0.2-1.2); Calc. Creatinine Clearance 70 mL/min (70-130); Calcium 8.8 mg/dL (7.8-10.44); Carbon Dioxide 22 mmol/L (22-29); Chloride 102 mmol/L (98-107); Estimated GFR 64; Globulin 3.7 g/dL (2.4-3.5); Glucose 230 mg/dL (70-105); Potassium 4.3 mmol/L (3.5-5.1); Protein, Total 6.6 g/dL (6.0-8.3); Sodium 136 mmol/L (136-145)
[2022-03-23] MEDS: Atorvastatin Calcium 40 MG TAB PO SCH (20:39)
[2022-03-23] MEDS: Senokot S 8.6-50 MG TAB PO SCH (20:40)
[2022-03-24] MEDS: HumaLOG 300 UNITS/3 ML VIAL SC PRN ×2 (06:04→17:51)
[2022-03-24] MEDS: Clopidogrel Bisulfate 75 MG TAB PO SCH (09:29)
[2022-03-24] MEDS: FLUoxetine HCl 20 MG CAP PO SCH (09:29)
[2022-03-24] MEDS: Lisinopril 5 MG TAB PO SCH (09:29)
[2022-03-24] MEDS: Aspirin 81 mg Enteric Coated Tablet PO SCH (09:29)
[2022-03-24] MEDS: Carvedilol 6.25 MG TAB PO SCH ×2 (09:30→17:50)
[2022-03-24] MEDS: Insulin Glargine 30 UNITS/0.3 ML VIAL SC SCH ×2 (09:30→21:07)
[2022-03-24] MEDS: Atorvastatin Calcium 40 MG TAB PO SCH (21:07)
[2022-03-24] MEDS: HYDROcodone/Acetaminophen 5/325 mg Tablet PO PRN (21:08)
[2022-03-24] MEDS: Senokot S 8.6-50 MG TAB PO SCH (21:08)
[2022-03-24] MEDS: hydrALAZINE 20 MG/ML VIAL SLOW IVP PRN (21:11)
[2022-03-25] MEDS: hydrALAZINE 20 MG/ML VIAL SLOW IVP PRN (04:18)
[2022-03-25] MEDS: HumaLOG 300 UNITS/3 ML VIAL SC PRN ×3 (07:30→22:04)
[2022-03-25] MEDS: Insulin Glargine 30 UNITS/0.3 ML VIAL SC SCH ×2 (09:30→22:05)
[2022-03-25] MEDS: Carvedilol 6.25 MG TAB PO SCH ×2 (09:31→16:46)
[2022-03-25] MEDS: Aspirin 81 mg Enteric Coated Tablet PO SCH (09:32)
[2022-03-25] MEDS: FLUoxetine HCl 20 MG CAP PO SCH (09:32)
[2022-03-25] MEDS: Clopidogrel Bisulfate 75 MG TAB PO SCH (09:32)
[2022-03-25] MEDS: Lisinopril 10 MG TAB PO SCH ×2 (09:32→20:47)
[2022-03-25] MEDS: HYDROcodone/Acetaminophen 5/325 mg Tablet PO PRN ×2 (13:37→20:48)
[2022-03-25] MEDS: Atorvastatin Calcium 40 MG TAB PO SCH (20:47)
[2022-03-25] MEDS: Senokot S 8.6-50 MG TAB PO SCH (20:50)
[2022-03-26 05:00] LABS: Anion Gap 17 mmol/L (10-20); BUN (Urea Nitrogen) 16 mg/dL (8.4-25.7); Calc. Creatinine Clearance 77 mL/min (70-130); Calcium 8.6 mg/dL (7.8-10.44); Carbon Dioxide 20 mmol/L (22-29); Chloride 103 mmol/L (98-107); Estimated GFR 74; Glucose 189 mg/dL (70-105); Potassium 3.7 mmol/L (3.5-5.1); Sodium 136 mmol/L (136-145)
[2022-03-26] MEDS: HumaLOG 300 UNITS/3 ML VIAL SC PRN ×2 (07:06→18:08)
[2022-03-26] MEDS: Carvedilol 6.25 MG TAB PO SCH ×2 (09:31→18:08)
[2022-03-26] MEDS: Clopidogrel Bisulfate 75 MG TAB PO SCH (09:31)
[2022-03-26] MEDS: Insulin Glargine 30 UNITS/0.3 ML VIAL SC SCH ×2 (09:31→20:21)
[2022-03-26] MEDS: Aspirin 81 mg Enteric Coated Tablet PO SCH (09:31)
[2022-03-26] MEDS: FLUoxetine HCl 20 MG CAP PO SCH (09:31)
[2022-03-26] MEDS: Lisinopril 10 MG TAB PO SCH ×2 (09:32→20:15)
[2022-03-26] MEDS: HYDROcodone/Acetaminophen 5/325 mg Tablet PO PRN ×2 (15:00→20:14)
[2022-03-26] MEDS: Atorvastatin Calcium 40 MG TAB PO SCH (20:14)
[2022-03-26] MEDS: Senokot S 8.6-50 MG TAB PO SCH (20:15)
[2022-03-27] MEDS: HYDROcodone/Acetaminophen 5/325 mg Tablet PO PRN ×4 (00:44→23:35)
[2022-03-27] MEDS: HumaLOG 300 UNITS/3 ML VIAL SC PRN ×2 (06:19→18:59)
[2022-03-27] MEDS: Carvedilol 6.25 MG TAB PO SCH ×2 (08:51→18:55)
[2022-03-27] MEDS: Clopidogrel Bisulfate 75 MG TAB PO SCH (08:52)
[2022-03-27] MEDS: Aspirin 81 mg Enteric Coated Tablet PO SCH (08:52)
[2022-03-27] MEDS: FLUoxetine HCl 20 MG CAP PO SCH (08:54)
[2022-03-27] MEDS: Lisinopril 10 MG TAB PO SCH ×2 (08:54→21:19)
[2022-03-27] MEDS: Insulin Glargine 30 UNITS/0.3 ML VIAL SC SCH ×2 (08:54→21:19)
[2022-03-27] MEDS: Senokot S 8.6-50 MG TAB PO SCH (21:19)
[2022-03-27] MEDS: Atorvastatin Calcium 40 MG TAB PO SCH (21:19)
[2022-03-28] MEDS: hydrALAZINE 20 MG/ML VIAL SLOW IVP PRN (04:25)
[2022-03-28 05:05] LABS: Anion Gap 14 mmol/L (10-20); BUN (Urea Nitrogen) 16 mg/dL (8.4-25.7); Calc. Creatinine Clearance 74 mL/min (70-130); Calcium 8.5 mg/dL (7.8-10.44); Carbon Dioxide 22 mmol/L (22-29); Chloride 105 mmol/L (98-107); Estimated GFR 71; Glucose 215 mg/dL (70-105); Potassium 4.2 mmol/L (3.5-5.1); Sodium 137 mmol/L (136-145)
[2022-03-28] MEDS: Clopidogrel Bisulfate 75 MG TAB PO SCH (09:43)
[2022-03-28] MEDS: FLUoxetine HCl 20 MG CAP PO SCH (09:43)
[2022-03-28] MEDS: Lisinopril 10 MG TAB PO SCH ×2 (09:43→19:09)
[2022-03-28] MEDS: Aspirin 81 mg Enteric Coated Tablet PO SCH (09:43)
[2022-03-28] MEDS: Insulin Glargine 30 UNITS/0.3 ML VIAL SC SCH ×2 (09:43→19:09)
[2022-03-28] MEDS: Carvedilol 6.25 MG TAB PO SCH ×2 (09:44→17:15)
[2022-03-28] MEDS: HYDROcodone/Acetaminophen 5/325 mg Tablet PO PRN ×3 (09:44→19:08)
[2022-03-28 11:36] VITALS: BMI 23.9
[2022-03-28] MEDS: HumaLOG 300 UNITS/3 ML VIAL SC PRN (11:44)
[2022-03-28] MEDS: Atorvastatin Calcium 40 MG TAB PO SCH (19:08)
[2022-03-28] MEDS: Senokot S 8.6-50 MG TAB PO SCH (19:09)
[2022-03-28 19:15] VITALS: BP 180/78; TEMP 97.8
[2022-03-30 16:58] LABS: Analyzer IN Cardio OR; Calcium, Ionized (arterial) 0.99 mmol/L (1.12-1.30); Carboxyhemoglobin (COHb) 0.1 gm% (0.0-3.0); Hemoglobin (Hb) 7.6 g/dL (14.0-18.0); O2 Tension (PaO2), arterial 432.5 mmHg (80.0-100.0); Potassium - ABG Lab 3.74 mmol/L (3.70-5.30)
[2022-03-30 16:58] LABS: Actual Bicarbonate (HCO3a) 24.6 mEq/L (22-28); Analyzer IN Cardio OR; Base Excess (BEa) 0.5 mEq/L (-2.0 to +3.0); CO2 Tension 37.2 mmHg (35.0-45.0); Calcium, Ionized (arterial) 1.04 mmol/L (1.12-1.30); Carboxyhemoglobin (COHb) 0.3 gm% (0.0-3.0); Hemoglobin (Hb) 10.3 g/dL (14.0-18.0); O2 Tension (PaO2), arterial 497.4 mmHg (80.0-100.0); Potassium - ABG Lab 3.45 mmol/L (3.70-5.30); pH, Arterial 7.44 (7.35-7.45)
[2022-03-30 16:58] LABS: Actual Bicarbonate (HCO3a) 24.7 mEq/L (22-28); Analyzer IN Cardio OR; Base Excess (BEa) 0.3 mEq/L (-2.0 to +3.0); CO2 Tension 39.1 mmHg (35.0-45.0); Calcium, Ionized (arterial) 1.04 mmol/L (1.12-1.30); Carboxyhemoglobin (COHb) 0.3 gm% (0.0-3.0); Hemoglobin (Hb) 10.3 g/dL (14.0-18.0); Potassium - ABG Lab 3.23 mmol/L (3.70-5.30); pH, Arterial 7.42 (7.35-7.45)
[2022-03-30 16:59] LABS: Puncture Site Arterial Line
[2022-03-30 16:59] LABS: Actual Bicarbonate (HCO3a) 27.8 mEq/L (22-28); Analyzer IN Cardio OR; Base Excess (BEa) 2.6 mEq/L (-2.0 to +3.0); CO2 Tension 44.8 mmHg (35.0-45.0); Calcium, Ionized (arterial) 1.04 mmol/L (1.12-1.30); O2 Tension (PaO2), arterial 258.3 mmHg (80.0-100.0); Potassium - ABG Lab 3.56 mmol/L (3.70-5.30); pH, Arterial 7.41 (7.35-7.45)
[2022-03-30 16:59] LABS: Puncture Site Arterial Line
[2022-03-30 17:00] LABS: Puncture Site Arterial Line
[2022-03-30 17:00] LABS: Puncture Site Arterial Line
[2022-03-30 17:11] LABS: Base Excess (BEa) -1.2 mEq/L (-2.0 to +3.0); CO2 Tension 30.2 mmHg (35.0-45.0); Carboxyhemoglobin (COHb) 0.3 gm% (0.0-3.0); Hemoglobin (Hb) 7.8 g/dL (14.0-18.0); O2 Tension (PaO2), arterial 312.2 mmHg (80.0-100.0); pH, Arterial 7.48 (7.35-7.45)
[2022-03-30 17:12] LABS: Calcium, Ionized (arterial) 1.01 mmol/L (1.12-1.30); Potassium - ABG Lab 3.73 mmol/L (3.70-5.30); Puncture Site Arterial Line
== END 2022-03-28 20:10 | DRG 233 ==
LOC: ERS 00:29 → 2NO 03:02 → CCU 03-14 08:26 → 2NO 03-16 18:19
PROVIDERS: ADMIT Family Medicine; ATTEND Family Medicine
PROC: 8E0ZXY6 Isolation (ICD-10-PCS; 2022-03-09)
PROC: 4A023N7 Measurement of Cardiac Sampling and Pressure, Left Heart, Percutaneous Approach (ICD-10-PCS; 2022-03-10)
PROC: B2111ZZ Fluoroscopy of Multiple Coronary Arteries using Low Osmolar Contrast (ICD-10-PCS; 2022-03-10)
PROC: B2151ZZ Fluoroscopy of Left Heart using Low Osmolar Contrast (ICD-10-PCS; 2022-03-10)
PROC: B2131ZZ Fluoroscopy of Multiple Coronary Artery Bypass Grafts using Low Osmolar Contrast (ICD-10-PCS; 2022-03-10)
PROC: 021109W Bypass Coronary Artery, Two Arteries from Aorta with Autologous Venous Tissue, Open Approach (ICD-10-PCS; principal; 2022-03-14)
PROC: 02100Z9 Bypass Coronary Artery, One Artery from Left Internal Mammary, Open Approach (ICD-10-PCS; 2022-03-14)
PROC: 06BQ4ZZ Excision of Left Saphenous Vein, Percutaneous Endoscopic Approach (ICD-10-PCS; 2022-03-14)
PROC: 02L70CK Occlusion of Left Atrial Appendage with Extraluminal Device, Open Approach (ICD-10-PCS; 2022-03-14)
PROC: 5A1221Z Performance of Cardiac Output, Continuous (ICD-10-PCS; 2022-03-14)
PROC: 3E043XZ Introduction of Vasopressor into Central Vein, Percutaneous Approach (ICD-10-PCS; 2022-03-14)
DX: I21.4 Non-ST elevation (NSTEMI) myocardial infarction (principal); U07.1 COVID-19; S32.431A Displaced fracture of anterior column [iliopubic] of right acetabulum, initial encounter for closed fracture; S32.441A Displaced fracture of posterior column [ilioischial] of right acetabulum, initial encounter for closed fracture; F05 Delirium due to known physiological condition; I69.351 Hemiplegia and hemiparesis following cerebral infarction affecting right dominant side; I25.10 Atherosclerotic heart disease of native coronary artery without angina pectoris; E78.00 Pure hypercholesterolemia, unspecified; I25.5 Ischemic cardiomyopathy; E78.2 Mixed hyperlipidemia; F41.9 Anxiety disorder, unspecified; E10.22 Type 1 diabetes mellitus with diabetic chronic kidney disease; I12.9 Hypertensive chronic kidney disease with stage 1 through stage 4 chronic kidney disease, or unspecified chronic kidney disease; I08.1 Rheumatic disorders of both mitral and tricuspid valves; N18.30 Chronic kidney disease, stage 3 unspecified; W01.0XXA Fall on same level from slipping, tripping and stumbling without subsequent striking against object, initial encounter; Y92.231 Patient bathroom in hospital as the place of occurrence of the external cause; Z78.1 Physical restraint status; Z88.0 Allergy status to penicillin; Z79.899 Other long term (current) drug therapy; Z79.82 Long term (current) use of aspirin; Z79.02 Long term (current) use of antithrombotics/antiplatelets; Z79.4 Long term (current) use of insulin; I69.320 Aphasia following cerebral infarction; Z79.890 Hormone replacement therapy
CPT/HCPCS: 36415; 36416; 70450; 71045; 71275; 72170; 74176; 80048; 80053; 80061; 82140; 82553; 82805; 83036; 83690; 83735; 84100; 84145; 84484; 85025; 85347; 85379; 85610; 85730; 86850; 86900; 86901; 93005; 93010; 93306; 93458; 93798; 93880; 94760; 96372; 97139; 99152; C1751; C1769; C1776; J0171; J0360; J1100; J1642; J1644; J1650; J1815; J1885; J2001; J2150; J2250; J2270; J2440; J2704; J2720; J3010; J3370; J3475; J3480; J3490; J7050; P9045; Q0162; Q9967; S0017; S0020; S0028; U0002

== ENCOUNTER 2023-01-17 16:19 | Outpatient (CLI) | payer OTHER | END 2023-01-17 16:20 | disposition home or self-care (01) | LOC: RAD 16:19 | PROVIDERS: ATTEND Family Medicine | DX: M25.511 Pain in right shoulder (principal) ==

== ENCOUNTER 2023-01-31 12:39 | Emergency (ER) | payer OTHER | END 2023-01-31 13:10 | disposition home or self-care (01) | LOC: ERS 12:39 | DX: U07.1 COVID-19 (principal); E10.9 Type 1 diabetes mellitus without complications; E78.5 Hyperlipidemia, unspecified; Z79.4 Long term (current) use of insulin; Z79.899 Other long term (current) drug therapy | CPT/HCPCS: 87635; 99283 ==

== ENCOUNTER 2024-04-25 07:54 | Outpatient (CLI) | payer OTHER | END 2024-04-25 07:55 | disposition home or self-care (01) | LOC: BICCT 07:54 | PROVIDERS: ATTEND Orthopaedic Surgery | DX: S32.401D Unspecified fracture of right acetabulum, subsequent encounter for fracture with routine healing (principal); S73.004D Unspecified dislocation of right hip, subsequent encounter ==

== ENCOUNTER 2024-06-18 13:15 | Inpatient (IN) | payer OTHER ==
[2024-06-18 15:00] LABS: #Basophils 0.08 10x3/uL (0.0-0.2); #Eosinophils Less than 0.03 10x3/uL (0.0-0.7); %Basophils 0.5 % (0.0-1.0); %Lymphocytes 5.3 % (21.0-51.0); %Monocytes 2.5 % (0.0-10.0); %Neutrophils 91.3 % (42.0-75.0); Hematocrit 35.3 % (42.0-52.0); Hemoglobin 11.2 g/dL (14.0-18.0); Mean Corpuscular HGB CONC 31.7 g/dL (32.0-36.0); Mean Corpuscular Hemoglobin 28.5 pg (27.0-31.0); Mean Corpuscular Volume 89.8 fL (78.0-98.0); Mean Platelet Volume 11.1 fL (7.4-10.4); Platelet Count 429 10x3/uL (130-400); RBC Distribution Width 13.4 % (11.5-14.5); Red Blood Cell (RBC) Count 3.93 mill/uL (4.70-6.10)
[2024-06-18 15:22] LABS: Troponin I 0.151 ng/mL (< 0.028)
[2024-06-18] MEDS ORDERED: predniSONE 20 MG TAB ONE (15:33)
[2024-06-18 15:41] LABS: ALT (SGPT) 15 U/L (8-55); AST (SGOT) 17 U/L (5-34); Albumin 3.3 g/dL (3.5-5.0); Alkaline Phosphatase 94 U/L (40-110); Anion Gap 35 mmol/L (10-20); BUN (Urea Nitrogen) 35 mg/dL (8.4-25.7); Bilirubin, Total 0.5 mg/dL (0.2-1.2); Calc. Creatinine Clearance 0 mL/min (70-130); Calcium 9.2 mg/dL (7.8-10.44); Carbon Dioxide Less than 8 mmol/L (22-29); Chloride 97 mmol/L (98-107); Estimated GFR 28; Globulin 4.5 g/dL (2.4-3.5); Glucose 758 mg/dL (70-105); Potassium 5.5 mmol/L (3.5-5.1); Protein, Total 7.8 g/dL (6.0-8.3); Sodium 133 mmol/L (136-145)
[2024-06-18] MEDS ORDERED: Ondansetron PF 4 MG/2 ML Vial ONE (16:05)
[2024-06-18] MEDS ORDERED: INSULIN REGULAR IN 0.9 % NACL 100 ML ONE (16:11)
[2024-06-18] MEDS ORDERED: Insulin Regular, Human 100 UNIT/ML 10 ML VIAL ONE ×2 (16:11→22:11)
[2024-06-18 16:22] LABS: Analyzer IN Cardio ER; Base Excess -23.2 mEq/L (-2.0 to +3.0); Chloride (VBG) 93 mmol/L (98-106); Hematocrit-VBG 36 % (42.0-52.0); Hemoglobin (Hb) 12.4 g/dL (13.1-17.2); Potassium (VBG) 5.48 mmol/L (3.70-5.30); Sodium 135 mmol/L (133-146)
[2024-06-18 16:23] LABS: Actual Bicarbonate (HCO3v) 5.6 mEq/L (22-28); pH (venous) 7.049 (7.32-7.43)
[2024-06-18 16:37] LABS: Phosphorus 7.5 mg/dL (2.3-4.7)
[2024-06-18 16:39] LABS: Lipase 12 U/L (8-78); Magnesium 2.6 mg/dL (1.6-2.6)
[2024-06-18] MEDS ORDERED: Acetaminophen 325 MG TAB PO PRN (16:44)
[2024-06-18] MEDS ORDERED: Calcium Carbonate 500 MG ChewTAB PO PRN (16:44)
[2024-06-18] MEDS ORDERED: Senokot S 8.6-50 MG TAB PO PRN (16:44)
[2024-06-18] MEDS ORDERED: Ondansetron PF 4 MG/2 ML Vial IVP PRN (16:44)
[2024-06-18] MEDS ORDERED: Electrolyte Replacement Protocol IVPB SCH (16:44)
[2024-06-18] MEDS ORDERED: Benzonatate 100 MG CAP PO PRN (16:50)
[2024-06-18] MEDS ORDERED: Ipratropium/Albuterol 3 ML NEB NEB PRN (16:50)
[2024-06-18] MEDS ORDERED: Sodium Bicarb 50 MEQ/50 ML Abboject 8.4% SYRINGE ONE (17:07)
[2024-06-18] MEDS ORDERED: Sodium Chloride 0.9% 100 ML ONE (17:07)
[2024-06-18] MEDS ORDERED: cefTRIAXone (ROCEPHIN) 2 GM VIAL ONE ×2 (17:07)
[2024-06-18] MEDS ORDERED: Aspirin Chewable 81 MG TAB ONE (17:43)
[2024-06-18] MEDS: Sodium Bicarb 50 MEQ/50 ML Abboject 8.4% SYRINGE IVP SCH ×2 (18:17→22:35)
[2024-06-18] MEDS: Sodium Chloride 0.9% 500 ML IV SCH ×2 (18:18→22:26)
[2024-06-18 18:21] VITALS: BMI 26.5
[2024-06-18 19:41] LABS: Lactic Acid 4.41 mmol/L (0.5-2.2)
[2024-06-18] MEDS ORDERED: Sodium Bicarb 50 mEq/50 ML VIAL ONE ×2 (19:53→22:30)
[2024-06-18 20:24] LABS: Anion Gap 31 mmol/L (10-20); BUN (Urea Nitrogen) 41 mg/dL (8.4-25.7); Calc. Creatinine Clearance 29 mL/min (70-130); Calcium 8.9 mg/dL (7.8-10.44); Carbon Dioxide 8 mmol/L (22-29); Chloride 100 mmol/L (98-107); Estimated GFR 21; Glucose 612 mg/dL (70-105); Potassium 3.9 mmol/L (3.5-5.1); Sodium 135 mmol/L (136-145)
[2024-06-18 20:33] LABS: Troponin I 0.329 ng/mL (< 0.028)
[2024-06-18] MEDS: Sodium Chloride 0.9% 1,000 ML IV SCH (20:55)
[2024-06-18] MEDS ORDERED: Carvedilol 6.25 MG TAB ONE (22:11)
[2024-06-18] MEDS ORDERED: Potassium Chloride 20 MEQ TAB ONE (22:11)
[2024-06-18] MEDS: Potassium Chloride 20 MEQ TAB PO SCH (22:22)
[2024-06-18] MEDS: Insulin Regular, Human 100 UNIT/ML 10 ML VIAL IVP SCH (22:24)
[2024-06-18] MEDS: INSULIN REGULAR IN 0.9 % NACL 100 ML IVPB SCH (23:00)
[2024-06-19 01:04] LABS: Troponin I 1.165 ng/mL (< 0.028)
[2024-06-19 01:32] LABS: Anion Gap 28 mmol/L (10-20); BUN (Urea Nitrogen) 39 mg/dL (8.4-25.7); Calc. Creatinine Clearance 32 mL/min (70-130); Calcium 8.7 mg/dL (7.8-10.44); Carbon Dioxide 15 mmol/L (22-29); Chloride 103 mmol/L (98-107); Estimated GFR 23; Glucose 334 mg/dL (70-105); Potassium 3.6 mmol/L (3.5-5.1); Sodium 142 mmol/L (136-145)
[2024-06-19] MEDS ORDERED: Enoxaparin 80 MG (0.8 mL) SYRINGE ONE (02:41)
[2024-06-19] MEDS: Enoxaparin 80 MG (0.8 mL) SYRINGE SC SCH ×2 (02:43→17:26)
[2024-06-19 03:19] LABS: #Basophils 0.03 10x3/uL (0.0-0.2); #Eosinophils Less than 0.03 10x3/uL (0.0-0.7); %Basophils 0.2 % (0.0-1.0); %Lymphocytes 5.1 % (21.0-51.0); %Monocytes 4.6 % (0.0-10.0); %Neutrophils 89.5 % (42.0-75.0); Hemoglobin 10.2 g/dL (14.0-18.0); Mean Corpuscular Hemoglobin 28.7 pg (27.0-31.0); Mean Corpuscular Volume 84.3 fL (78.0-98.0); Mean Platelet Volume 10.3 fL (7.4-10.4); Platelet Count 385 10x3/uL (130-400); RBC Distribution Width 13.2 % (11.5-14.5); Red Blood Cell (RBC) Count 3.56 mill/uL (4.70-6.10)
[2024-06-19 03:31] LABS: Hemoglobin A1c 8.9 % (4.0-6.0)
[2024-06-19] MEDS ORDERED: INSULIN REGULAR IN 0.9 % NACL 100 ML ONE (03:52)
[2024-06-19] MEDS: Dextrose 50% Abboject 50 ML SYRINGE SLOW IVP PRN ×2 (04:15→16:29)
[2024-06-19 04:51] LABS: Lactic Acid 2.58 mmol/L (0.5-2.2)
[2024-06-19 05:19] LABS: Chloride 107 mmol/L (98-107); Sodium 142 mmol/L (136-145)
[2024-06-19 05:21] LABS: Anion Gap 21 mmol/L (10-20); BUN (Urea Nitrogen) 41 mg/dL (8.4-25.7); Calc. Creatinine Clearance 34 mL/min (70-130); Carbon Dioxide 18 mmol/L (22-29); Estimated GFR 25; Glucose 179 mg/dL (70-105)
[2024-06-19 05:22] LABS: ALT (SGPT) 15 U/L (8-55); AST (SGOT) 25 U/L (5-34); Albumin 2.9 g/dL (3.5-5.0); Alkaline Phosphatase 81 U/L (40-110); Bilirubin, Total 0.2 mg/dL (0.2-1.2); Calcium 8.8 mg/dL (7.6-10.4); Globulin 4.1 g/dL (2.4-3.5); Phosphorus 2.3 mg/dL (2.3-4.7)
[2024-06-19 05:43] LABS: Magnesium 2.4 mg/dL (1.6-2.6)
[2024-06-19] MEDS ORDERED: Dextrose 5% in Water 1,000 ML IV PRN ×2 (05:45→18:02)
[2024-06-19] MEDS ORDERED: NS 0.9% w/ 20 MEQ KCL 1,000 ML/1,000 ML BAG IV PRN ×2 (05:45)
[2024-06-19] MEDS ORDERED: Glucagon 1 MG/ML KIT IM PRN ×2 (05:45→18:02)
[2024-06-19] MEDS ORDERED: Dextrose 5 %-0.45 % NaCl 1,000 ML IV PRN (05:45)
[2024-06-19] MEDS ORDERED: Sodium Chloride 0.9% 1,000 ML IV PRN ×4 (05:45)
[2024-06-19] MEDS: D5 1/2 NS w/20 mEq KCL 1,000 ML IV PRN (06:00)
[2024-06-19] MEDS ORDERED: D5 1/2 NS w/20 mEq KCL 1,000 ML ONE (06:07)
[2024-06-19] MEDS: Carvedilol 6.25 MG TAB PO SCH (06:16)
[2024-06-19] MEDS: Insulin Regular, Human 100 UNIT/ML 10 ML VIAL IVP SCH (06:18)
[2024-06-19] MEDS ORDERED: Enoxaparin 40 MG (0.4 mL) SYRINGE SC SCH (09:00)
[2024-06-19] MEDS: Aspirin 81 mg Enteric Coated Tablet PO SCH (09:40)
[2024-06-19] MEDS: FLUoxetine HCl 20 MG CAP PO SCH (09:40)
[2024-06-19] MEDS: Clopidogrel Bisulfate 75 MG TAB PO SCH (09:41)
[2024-06-19] MEDS: Pantoprazole DR 40 MG TAB PO SCH (09:41)
[2024-06-19] MEDS: Amlodipine 5 MG TAB PO SCH (09:41)
[2024-06-19] MEDS: Atorvastatin Calcium 40 MG TAB PO SCH (09:51)
[2024-06-19 10:01] LABS: Anion Gap 17 mmol/L (10-20); BUN (Urea Nitrogen) 39 mg/dL (8.4-25.7); Calc. Creatinine Clearance 38 mL/min (70-130); Calcium 8.4 mg/dL (7.8-10.44); Carbon Dioxide 22 mmol/L (22-29); Chloride 108 mmol/L (98-107); Estimated GFR 29; Glucose 124 mg/dL (70-105); Magnesium 2.2 mg/dL (1.6-2.6); Potassium 3.5 mmol/L (3.5-5.1); Sodium 143 mmol/L (136-145)
[2024-06-19 15:00] LABS: Anion Gap 13 mmol/L (10-20); BUN (Urea Nitrogen) 40 mg/dL (8.4-25.7); Calc. Creatinine Clearance 39 mL/min (70-130); Calcium 8.4 mg/dL (7.8-10.44); Carbon Dioxide 23 mmol/L (22-29); Chloride 108 mmol/L (98-107); Estimated GFR 30; Glucose 142 mg/dL (70-105); Potassium 3.3 mmol/L (3.5-5.1); Sodium 141 mmol/L (136-145)
[2024-06-19 15:16] LABS: Troponin I 2.076 ng/mL (< 0.028)
[2024-06-19] MEDS: Potassium Chloride 20 MEQ TAB PO SCH (15:25)
[2024-06-19 16:12] LABS: Bacteria/HPF None Seen HPF (None Seen); Bilirubin Negative (Negative); Blood, Urine 1+ (Negative); CAUTI Indications for Culture Alt mental st,lethar; Clarity Clear (Clear); Glucose, Urine (Dipstick) >=1000 mg/dL (Negative); Ketone, Urine 10 mg/dL (Negative); Leukocyte Negative Leu/uL (Negative); Nitrite Negative (Negative); Protein, Urine (Dipstick) 100 mg/dL (Neg-Trace); RBC/HPF 0-3 HPF (0-3); Specific Gravity, Urine 1.015 (1.002-1.036); Squamous Epithelial 0-3 HPF (0-3); Urobilinogen Normal mg/dL (Less than 2); WBC/HPF 0-3 HPF (0-3); pH, Urine 5.5 (5.0-9.0)
[2024-06-19 16:35] LABS: Urine Culture Reflex No No
[2024-06-19] MEDS ORDERED: Dextrose 50% Abboject 50 ML SYRINGE SLOW IVP PRN (18:02)
[2024-06-19] MEDS: D5 1/2 NS w/20 mEq KCL 1,000 ML IV SCH (18:02)
[2024-06-19] MEDS: Lactated Ringer's 1,000 ML IV SCH (18:48)
[2024-06-19] MEDS: Insulin Glargine 30 UNITS/0.3 ML VIAL SC SCH (18:51)
[2024-06-19 20:29] LABS: Critical Call Chem Troponin I RESULT DECREASING; Troponin I 1.583 ng/mL (< 0.028)
[2024-06-19] MEDS: Insulin Lispro 100 UNIT/ML 10 ML VIAL SC PRN (21:03)
[2024-06-20 04:24] LABS: Anion Gap 14 mmol/L (10-20); BUN (Urea Nitrogen) 37 mg/dL (8.4-25.7); Calc. Creatinine Clearance 42 mL/min (70-130); Calcium 7.8 mg/dL (7.8-10.44); Carbon Dioxide 21 mmol/L (22-29); Chloride 110 mmol/L (98-107); Estimated GFR 33; Glucose 171 mg/dL (70-105); Potassium 3.9 mmol/L (3.5-5.1); Sodium 141 mmol/L (136-145)
[2024-06-20] MEDS: Enoxaparin 80 MG (0.8 mL) SYRINGE SC SCH ×2 (05:19→21:28)
[2024-06-20] MEDS: Sodium Bicarbonate Tab 325 MG TAB PO SCH ×2 (11:19→15:15)
[2024-06-20] MEDS: Insulin Glargine 30 UNITS/0.3 ML VIAL SC SCH (11:20)
[2024-06-21 04:17] LABS: #Basophils 0.05 10x3/uL (0.0-0.2); %Basophils 0.4 % (0.0-1.0); %Eosinophils 1.5 % (0.0-10.0); %Lymphocytes 14.8 % (21.0-51.0); %Monocytes 6.8 % (0.0-10.0); %Neutrophils 75.8 % (42.0-75.0); Hematocrit 27.7 % (42.0-52.0); Hemoglobin 9.4 g/dL (14.0-18.0); Mean Corpuscular HGB CONC 33.9 g/dL (32.0-36.0); Mean Corpuscular Hemoglobin 28.4 pg (27.0-31.0); Mean Corpuscular Volume 83.7 fL (78.0-98.0); Mean Platelet Volume 10.5 fL (7.4-10.4); Platelet Count 368 10x3/uL (130-400); RBC Distribution Width 13.7 % (11.5-14.5); Red Blood Cell (RBC) Count 3.31 mill/uL (4.70-6.10)
[2024-06-21 04:35] LABS: Anion Gap 13 mmol/L (10-20); BUN (Urea Nitrogen) 24 mg/dL (8.4-25.7); Calc. Creatinine Clearance 72 mL/min (70-130); Calcium 7.8 mg/dL (7.8-10.44); Carbon Dioxide 24 mmol/L (22-29); Chloride 108 mmol/L (98-107); Estimated GFR 69; Glucose 145 mg/dL (70-105); Magnesium 1.8 mg/dL (1.6-2.6); Potassium 3.7 mmol/L (3.5-5.1); Sodium 141 mmol/L (136-145)
[2024-06-21] MEDS: Potassium Chloride 20 MEQ TAB PO SCH (09:32)
[2024-06-21] MEDS: Magnesium 2 GM/50 ML(in water) 2 GM in Premix 1 BAG IVPB SCH (11:09)
[2024-06-21 13:02] VITALS: BMI 29.5
[2024-06-21] MEDS: guaiFENesin ER 600 MG TAB PO SCH (20:31)
[2024-06-21] MEDS: Enoxaparin 100 MG (1 mL) SYRINGE SC SCH (20:31)
[2024-06-21] MEDS: Doxycycline 100 MG CAP PO SCH (20:31)
[2024-06-22 04:43] LABS: #Basophils 0.03 10x3/uL (0.0-0.2); %Basophils 0.3 % (0.0-1.0); %Eosinophils 1.7 % (0.0-10.0); %Lymphocytes 16.9 % (21.0-51.0); %Monocytes 7.6 % (0.0-10.0); %Neutrophils 72.6 % (42.0-75.0); Hematocrit 28.5 % (42.0-52.0); Hemoglobin 9.6 g/dL (14.0-18.0); Mean Corpuscular HGB CONC 33.7 g/dL (32.0-36.0); Mean Corpuscular Hemoglobin 28.2 pg (27.0-31.0); Mean Corpuscular Volume 83.6 fL (78.0-98.0); Mean Platelet Volume 10.8 fL (7.4-10.4); Platelet Count 358 10x3/uL (130-400); RBC Distribution Width 13.5 % (11.5-14.5); Red Blood Cell (RBC) Count 3.41 mill/uL (4.70-6.10)
[2024-06-22 05:12] LABS: Anion Gap 14 mmol/L (10-20); BUN (Urea Nitrogen) 17 mg/dL (8.4-25.7); Calc. Creatinine Clearance 89 mL/min (70-130); Calcium 7.6 mg/dL (7.8-10.44); Carbon Dioxide 23 mmol/L (22-29); Chloride 106 mmol/L (98-107); Estimated GFR 71; Glucose 177 mg/dL (70-105); Potassium 3.8 mmol/L (3.5-5.1); Sodium 139 mmol/L (136-145)
[2024-06-22 18:53] VITALS: BP 175/81; TEMP 98.6
== END 2024-06-22 19:55 | disposition home health service (06) | DRG 638 ==
LOC: SUATTDRO 13:15 → ERS 13:15 → ERHOLD 16:45 → CCU 16:50 → IMCU/EMU 06-19 19:14 → 2NO 06-20 17:55
PROVIDERS: ADMIT Internal Medicine; ATTEND Internal Medicine
DX: E10.10 Type 1 diabetes mellitus with ketoacidosis without coma (principal); E87.1 Hypo-osmolality and hyponatremia; I13.0 Hypertensive heart and chronic kidney disease with heart failure and stage 1 through stage 4 chronic kidney disease, or unspecified chronic kidney disease; N17.9 Acute kidney failure, unspecified; I50.22 Chronic systolic (congestive) heart failure; E78.5 Hyperlipidemia, unspecified; I25.10 Atherosclerotic heart disease of native coronary artery without angina pectoris; J01.90 Acute sinusitis, unspecified; N18.9 Chronic kidney disease, unspecified; J40 Bronchitis, not specified as acute or chronic; E87.5 Hyperkalemia; Z86.73 Personal history of transient ischemic attack (TIA), and cerebral infarction without residual deficits; Z95.1 Presence of aortocoronary bypass graft
CPT/HCPCS: 36415; 36416; 70551; 71046; 80048; 80053; 81001; 82010; 82805; 83036; 83605; 83690; 83735; 83880; 84100; 84145; 84484; 85025; 87040; 93005; 93010; 93306; 94640; 96365; 96367; 96375; J0696; J1650; J1815; J2405; J3475; J3480; J7030; J7120; J7512; J7999

== ENCOUNTER 2024-07-17 23:03 | Inpatient (IN) | payer MEDICARE, OTHER ==
[2024-07-17 23:28] LABS: #Basophils 0.07 10x3/uL (0.0-0.2); %Basophils 0.8 % (0.0-1.0); %Eosinophils 4.4 % (0.0-10.0); %Lymphocytes 16.8 % (21.0-51.0); %Monocytes 8.6 % (0.0-10.0); %Neutrophils 69.2 % (42.0-75.0); Hematocrit 30.2 % (42.0-52.0); Hemoglobin 10.1 g/dL (14.0-18.0); Mean Corpuscular HGB CONC 33.4 g/dL (32.0-36.0); Mean Corpuscular Hemoglobin 28.9 pg (27.0-31.0); Mean Corpuscular Volume 86.5 fL (78.0-98.0); Mean Platelet Volume 10.9 fL (7.4-10.4); Platelet Count 318 10x3/uL (130-400); RBC Distribution Width 14.1 % (11.5-14.5); Red Blood Cell (RBC) Count 3.49 mill/uL (4.70-6.10)
[2024-07-17 23:45] LABS: Prothrombin Time 13.5 sec (12.0-14.7)
[2024-07-17 23:46] LABS: Calc. Creatinine Clearance 0 mL/min (70-130); Estimated GFR 43
[2024-07-17 23:47] LABS: ALT (SGPT) 23 U/L (8-55); AST (SGOT) 25 U/L (5-34); Albumin 3.4 g/dL (3.5-5.0); Alkaline Phosphatase 78 U/L (40-110); Anion Gap 12 mmol/L (10-20); BUN (Urea Nitrogen) 29 mg/dL (8.4-25.7); Bilirubin, Total 0.3 mg/dL (0.2-1.2); Calcium 8.5 mg/dL (7.8-10.44); Carbon Dioxide 23 mmol/L (22-29); Chloride 109 mmol/L (98-107); Globulin 4.1 g/dL (2.4-3.5); Glucose 173 mg/dL (70-105); Lipase 26 U/L (8-78); Magnesium 2.3 mg/dL (1.6-2.6); Potassium 4.2 mmol/L (3.5-5.1); Protein, Total 7.5 g/dL (6.0-8.3); Sodium 140 mmol/L (136-145)
[2024-07-17 23:53] LABS: Troponin I 0.016 ng/mL (< 0.028)
[2024-07-18] MEDS ORDERED: Furosemide 40 MG (4 mL) VIAL ONE (00:41)
[2024-07-18 02:20] LABS: Bacteria/HPF None Seen HPF (None Seen); Bilirubin Negative (Negative); Blood, Urine Negative (Negative); CAUTI Indications for Culture Dysuria,urgency,freq; Clarity Clear (Clear); Glucose, Urine (Dipstick) 50 mg/dL (Negative); Ketone, Urine Negative (Negative); Leukocyte Negative Leu/uL (Negative); Nitrite Negative (Negative); Protein, Urine (Dipstick) 100 mg/dL (Neg-Trace); RBC/HPF 0-3 HPF (0-3); Specific Gravity, Urine 1.014 (1.002-1.036); Sperm/HPF Rare HPF (None Seen); Squamous Epithelial None Seen HPF (0-3); Urobilinogen Normal mg/dL (Less than 2); WBC/HPF 0-3 HPF (0-3); pH, Urine 5.5 (5.0-9.0)
[2024-07-18 02:21] LABS: Urine Culture Reflex No No
[2024-07-18] MEDS ORDERED: Piperacillin/Tazobactam 3.375 GM VIAL ONE (02:47)
[2024-07-18] MEDS ORDERED: Sodium Chloride 0.9% 100 ML ONE (02:47)
[2024-07-18] MEDS ORDERED: Acetaminophen 650 MG Suppository PR PRN (02:54)
[2024-07-18] MEDS ORDERED: Ondansetron PF 4 MG/2 ML Vial IVP PRN (02:54)
[2024-07-18] MEDS ORDERED: Calcium Carbonate 500 MG ChewTAB PO PRN (02:54)
[2024-07-18] MEDS ORDERED: Ondansetron ODT 4 MG TAB PO PRN (02:54)
[2024-07-18] MEDS ORDERED: Acetaminophen 325 MG TAB PO PRN (02:54)
[2024-07-18] MEDS ORDERED: Dextrose 5% in Water 1,000 ML IV PRN (02:56)
[2024-07-18] MEDS ORDERED: Dextrose 50% Abboject 50 ML SYRINGE SLOW IVP PRN (02:56)
[2024-07-18] MEDS ORDERED: Glucagon 1 MG/ML KIT IM PRN (02:56)
[2024-07-18 03:41] VITALS: BMI 28.3
[2024-07-18 05:01] LABS: #Basophils 0.03 10x3/uL (0.0-0.2); %Basophils 0.3 % (0.0-1.0); %Eosinophils 3.7 % (0.0-10.0); %Lymphocytes 13.2 % (21.0-51.0); %Monocytes 7.7 % (0.0-10.0); %Neutrophils 74.8 % (42.0-75.0); Hematocrit 30.6 % (42.0-52.0); Hemoglobin 9.9 g/dL (14.0-18.0); Mean Corpuscular HGB CONC 32.4 g/dL (32.0-36.0); Mean Corpuscular Hemoglobin 28.4 pg (27.0-31.0); Mean Corpuscular Volume 87.7 fL (78.0-98.0); Mean Platelet Volume 11.2 fL (7.4-10.4); Platelet Count 313 10x3/uL (130-400); RBC Distribution Width 14.4 % (11.5-14.5); Red Blood Cell (RBC) Count 3.49 mill/uL (4.70-6.10)
[2024-07-18 05:16] LABS: Anion Gap 16 mmol/L (10-20); BUN (Urea Nitrogen) 29 mg/dL (8.4-25.7); Calc. Creatinine Clearance 59 mL/min (70-130); Calcium 8.5 mg/dL (7.8-10.44); Carbon Dioxide 20 mmol/L (22-29); Chloride 105 mmol/L (98-107); Estimated GFR 45; Glucose 261 mg/dL (70-105); Potassium 4.3 mmol/L (3.5-5.1); Sodium 137 mmol/L (136-145)
[2024-07-18 05:26] LABS: Troponin I Less than 0.010 ng/mL (< 0.028)
[2024-07-18] MEDS: Insulin Lispro 100 UNIT/ML 10 ML VIAL SC PRN ×2 (06:06→21:25)
[2024-07-18] MEDS: Furosemide 20 MG (2 mL) VIAL SLOW IVP SCH (06:06)
[2024-07-18] MEDS ORDERED: Insulin Glargine 30 UNITS/0.3 ML VIAL SC SCH (07:30)
[2024-07-18 09:17] LABS: Troponin I 0.022 ng/mL (< 0.028)
[2024-07-18] MEDS: Sacubitril 24MG/Valsartan 26 MG TAB PO SCH (10:36)
[2024-07-18] MEDS: cloNIDine 0.1 MG TAB PO SCH (10:36)
[2024-07-18] MEDS: Atorvastatin Calcium 40 MG TAB PO SCH ×2 (10:37→11:34)
[2024-07-18] MEDS: Famotidine/PF 20 mg/2ml Vial SLOW IVP SCH (10:37)
[2024-07-18] MEDS: Famotidine 20 MG TAB PO SCH (10:37)
[2024-07-18] MEDS: Empagliflozin 10 MG TAB PO SCH (10:37)
[2024-07-18] MEDS: Amlodipine 10 MG TAB PO SCH (10:37)
[2024-07-18] MEDS: Aspirin 81 mg Enteric Coated Tablet PO SCH (10:39)
[2024-07-18] MEDS: Insulin Glargine 30 UNITS/0.3 ML VIAL SC SCH ×2 (10:39→21:26)
[2024-07-18 14:30] LABS: Anion Gap 12 mmol/L (10-20); BUN (Urea Nitrogen) 30 mg/dL (8.4-25.7); Calc. Creatinine Clearance 57 mL/min (70-130); Calcium 8.5 mg/dL (7.8-10.44); Carbon Dioxide 23 mmol/L (22-29); Chloride 106 mmol/L (98-107); Estimated GFR 43; Glucose 236 mg/dL (70-105); Potassium 4.2 mmol/L (3.5-5.1); Sodium 137 mmol/L (136-145)
[2024-07-19 05:22] LABS: Anion Gap 12 mmol/L (10-20); BUN (Urea Nitrogen) 29 mg/dL (8.4-25.7); Calc. Creatinine Clearance 53 mL/min (70-130); Carbon Dioxide 23 mmol/L (22-29); Chloride 105 mmol/L (98-107); Estimated GFR 40; Glucose 219 mg/dL (70-105); Magnesium 2.2 mg/dL (1.6-2.6); Potassium 3.9 mmol/L (3.5-5.1); Sodium 136 mmol/L (136-145)
[2024-07-19 09:33] LABS: #Basophils 0.05 10x3/uL (0.0-0.2); %Basophils 0.7 % (0.0-1.0); %Eosinophils 6.6 % (0.0-10.0); %Monocytes 8.7 % (0.0-10.0); %Neutrophils 65.7 % (42.0-75.0); Hematocrit 30.2 % (42.0-52.0); Hemoglobin 10.1 g/dL (14.0-18.0); Mean Corpuscular HGB CONC 33.4 g/dL (32.0-36.0); Mean Corpuscular Hemoglobin 28.9 pg (27.0-31.0); Mean Corpuscular Volume 86.5 fL (78.0-98.0); Mean Platelet Volume 11.1 fL (7.4-10.4); Platelet Count 308 10x3/uL (130-400); RBC Distribution Width 14.2 % (11.5-14.5); Red Blood Cell (RBC) Count 3.49 mill/uL (4.70-6.10)
[2024-07-19] MEDS: Furosemide 20 MG (2 mL) VIAL SLOW IVP SCH (15:21)
[2024-07-20] MEDS ORDERED: Electrolyte Replacement Protocol FS PRN (08:30)
[2024-07-20 10:15] LABS: Anion Gap 12 mmol/L (10-20); BUN (Urea Nitrogen) 26 mg/dL (8.4-25.7); Calc. Creatinine Clearance 56 mL/min (70-130); Calcium 8.4 mg/dL (7.8-10.44); Carbon Dioxide 26 mmol/L (22-29); Chloride 105 mmol/L (98-107); Estimated GFR 45; Glucose 170 mg/dL (70-105); Potassium 4.3 mmol/L (3.5-5.1); Sodium 139 mmol/L (136-145)
[2024-07-20] MEDS ORDERED: Senokot 8.6 MG TAB PO PRN (11:17)
[2024-07-20] MEDS: Electrolyte Replacement Protocol 1 EACH FS ONE (18:38)
[2024-07-21 03:42] LABS: #Basophils 0.05 10x3/uL (0.0-0.2); %Basophils 0.6 % (0.0-1.0); %Eosinophils 4.9 % (0.0-10.0); %Lymphocytes 15.2 % (21.0-51.0); %Monocytes 8.8 % (0.0-10.0); %Neutrophils 70.3 % (42.0-75.0); Hematocrit 28.7 % (42.0-52.0); Hemoglobin 9.2 g/dL (14.0-18.0); Mean Corpuscular HGB CONC 32.1 g/dL (32.0-36.0); Mean Corpuscular Hemoglobin 28.4 pg (27.0-31.0); Mean Corpuscular Volume 88.6 fL (78.0-98.0); Mean Platelet Volume 11.3 fL (7.4-10.4); Platelet Count 291 10x3/uL (130-400); Red Blood Cell (RBC) Count 3.24 mill/uL (4.70-6.10)
[2024-07-21 04:03] LABS: Anion Gap 13 mmol/L (10-20); BUN (Urea Nitrogen) 29 mg/dL (8.4-25.7); Calc. Creatinine Clearance 55 mL/min (70-130); Calcium 8.3 mg/dL (7.8-10.44); Carbon Dioxide 24 mmol/L (22-29); Chloride 109 mmol/L (98-107); Estimated GFR 44; Glucose 129 mg/dL (70-105); Magnesium 2.4 mg/dL (1.6-2.6); Potassium 4.1 mmol/L (3.5-5.1); Sodium 142 mmol/L (136-145)
[2024-07-21] MEDS: Furosemide 20 MG TAB PO SCH (10:54)
[2024-07-21] MEDS: Ciprofloxacin Lactate/D5W 400 MG in Premix 1 BAG IVPB SCH (10:55)
[2024-07-21] MEDS: Heparin 5,000 UNITS/ML VIAL SC SCH (21:42)
[2024-07-22 04:59] LABS: #Basophils 0.05 10x3/uL (0.0-0.2); %Basophils 0.7 % (0.0-1.0); %Lymphocytes 18.1 % (21.0-51.0); %Monocytes 8.9 % (0.0-10.0); %Neutrophils 66.2 % (42.0-75.0); Hemoglobin 8.3 g/dL (14.0-18.0); Mean Corpuscular HGB CONC 31.9 g/dL (32.0-36.0); Mean Corpuscular Volume 87.8 fL (78.0-98.0); Mean Platelet Volume 11.2 fL (7.4-10.4); Platelet Count 276 10x3/uL (130-400); Red Blood Cell (RBC) Count 2.96 mill/uL (4.70-6.10)
[2024-07-22 06:17] LABS: Anion Gap 11 mmol/L (10-20); BUN (Urea Nitrogen) 28 mg/dL (8.4-25.7); Calc. Creatinine Clearance 56 mL/min (70-130); Calcium 7.8 mg/dL (7.8-10.44); Carbon Dioxide 23 mmol/L (22-29); Chloride 108 mmol/L (98-107); Estimated GFR 44; Glucose 132 mg/dL (70-105); Potassium 4.2 mmol/L (3.5-5.1); Sodium 138 mmol/L (136-145)
[2024-07-22] MEDS: Furosemide 40 MG TAB PO SCH (11:06)
[2024-07-22 12:37] VITALS: BP 119/60; TEMP 97.6
== END 2024-07-22 16:25 | disposition home or self-care (01) | DRG 291 ==
LOC: ERS 23:03 → 2NO 07-18 02:53 → OBSVTOIN 07-19 08:42
PROVIDERS: ADMIT Student in an Organized Health Care Education/Training Program; ATTEND Internal Medicine
DX: I13.0 Hypertensive heart and chronic kidney disease with heart failure and stage 1 through stage 4 chronic kidney disease, or unspecified chronic kidney disease (principal); I50.33 Acute on chronic diastolic (congestive) heart failure; N17.9 Acute kidney failure, unspecified; R78.81 Bacteremia; Z95.1 Presence of aortocoronary bypass graft; E78.5 Hyperlipidemia, unspecified; E10.22 Type 1 diabetes mellitus with diabetic chronic kidney disease; N18.30 Chronic kidney disease, stage 3 unspecified; D63.1 Anemia in chronic kidney disease; R53.81 Other malaise; I25.10 Atherosclerotic heart disease of native coronary artery without angina pectoris; Z79.899 Other long term (current) drug therapy
CPT/HCPCS: 36415; 36416; 71045; 80048; 80053; 81001; 83605; 83690; 83735; 83880; 84443; 84484; 85025; 85610; 85730; 87040; 87077; 93005; 93798; 96376; G0378; J0744; J1644; J1815; J1940; J2543

== ENCOUNTER 2025-05-07 14:55 | Emergency (ER) | payer OTHER | END 2025-05-07 17:10 | disposition home or self-care (01) | LOC: ERS 14:55 | DX: S09.90XA Unspecified injury of head, initial encounter (principal); S70.01XA Contusion of right hip, initial encounter; E10.9 Type 1 diabetes mellitus without complications; I10 Essential (primary) hypertension; W01.0XXA Fall on same level from slipping, tripping and stumbling without subsequent striking against object, initial encounter | CPT/HCPCS: 70450; 72170; 73502; G0390 ==